=== PATIENT | female | born 1940 | race Caucasian/White ===

== ENCOUNTER → 2017-04-05 | Outpatient (CLI) | payer MEDICARE, OTHER ==
--- NOTE | 2017-04-06 19:20 | Diagnostic Imaging Report ---
Bilateral screening mammogram The current study was also evaluated with a Computer Aided Detection (CAD) system. Indication: Screening. No current complaints stated on the questionnaire. COMPARISON: 02/18/16 FINDINGS: The breasts are composed of scattered fibroglandular densities. Benign-appearing calcifications seen. Allowing for technique and positional differences, no suspicious change is seen. IMPRESSION: No significant change. ACR BI-RADS Category 2: Benign findings. Result letter will be mailed to the patient. Note: At least 10% of breast cancer is not imaged by mammography. Dictated by: Dictated on workstation # [id number]
== END ==
LOC: RAD 13:51
PROVIDERS: ATTEND Internal Medicine
DX: Z12.31 Encounter for screening mammogram for malignant neoplasm of breast (principal)
CPT/HCPCS: 77067

== ENCOUNTER → 2017-06-30 | Outpatient (CLI) | payer MEDICARE, OTHER ==
--- NOTE | 2017-06-30 11:57 | Diagnostic Imaging Report ---
Examination: DEXA scan. Indication: osteopenia Technique: Bone mineral density estimated based on dual energy radiography over the lumbar spine and femoral necks, was performed. Findings: The lumbar spine T-score is 0.9. The T score of the left femoral neck is 0.5 and on the right is 0.4. IMPRESSION: Normal bone mineral density. Dictated by: Dictated on workstation # [id number]
== END ==
LOC: RAD 10:15
PROVIDERS: ATTEND Surgery
DX: M85.812 Other specified disorders of bone density and structure, left shoulder (principal)
CPT/HCPCS: 77080

== ENCOUNTER → 2018-05-11 | Outpatient (CLI) | payer MEDICARE, OTHER ==
--- NOTE | 2018-05-11 17:43 | Diagnostic Imaging Report ---
INDICATION: Routine screening. COMPARISON: Comparison is made with prior exams from 04/05/2017 and 02/18/2016. TECHNIQUE: 2D and 3D bilateral screening mammography was performed with computer-aided detection (CAD) system. FINDINGS: Both breasts remain heterogeneously dense, limiting the sensitivity of mammography. There is an area of spiculated increased density noted in the right breast just medial to the nipple line on the CC view. This appears to be superiorly located on the MLO view. This is seen on the MLO tomographic slice 49. The density is located approximately 8.5 cm from the nipple. Left breast is unremarkable. No suspicious calcifications are seen. The axillae are unremarkable. IMPRESSION: Right breast density, upper and slightly inner aspect. Additional views including spot compression and mediolateral views are recommended for further evaluation. ACR BI-RADS Category 0: Incomplete. (Needs additional imaging evaluation). Result letter will be mailed to the patient. Note: At least 10% of breast cancer is not imaged by mammography. Dictated by: Dictated on workstation # [id number]
== END ==
LOC: RAD 13:34
PROVIDERS: ATTEND Internal Medicine
DX: Z12.31 Encounter for screening mammogram for malignant neoplasm of breast (principal)
CPT/HCPCS: 77067

== ENCOUNTER → 2018-05-18 | Outpatient (CLI) | payer MEDICARE, OTHER ==
--- NOTE | 2018-05-18 13:07 | Diagnostic Imaging Report ---
INDICATION: Right breast density. Patient presents for additional views. CORRELATION is made with recent screening study from 05/11/2018. 2D and 3D lateral right diagnostic mammography was performed including spot compression CC and MLO views as well as conventional 90 degree lateral view. Additional views show persistent spiculated density in the upper right breast at approximately 12 to 1 o'clock clock location. This is located approximately 9-10 cm from the nipple. No microcalcifications are seen. IMPRESSION: BI-RADS 0. Spiculated 1 cm density in the upper right breast at posterior depth, concerning for a small breast neoplasm. Further evaluation with ultrasound is recommended. Dictated by: Dictated on workstation # [id number]
--- NOTE | 2018-05-18 13:37 | Diagnostic Imaging Report ---
Indication: Right breast density. Correlation is made with diagnostic mammogram earlier the same day. Sonographic interrogation of the upper right breast was performed. There is a hypoechoic mass at the 1 o'clock location of the right breast 8 cm from the nipple measuring 7 mm x 5 mm x 8 mm. This does correspond in size and location to the mammographic density. Features are somewhat concerning for a small neoplasm. No shadowing is identified. No definite internal vascularity is seen. No other abnormalities are detected. Impression: BI-RADS 4 A 7 mm x 8 mm hypoechoic solid-appearing mass at the 1 o'clock location of the right breast 8 cm from the nipple. This does correspond with the mammographic density and is concerning for a small neoplasm. Tissue sampling is recommended. This would likely be amenable to ultrasound-guided core biopsy. Dictated by: Dictated on workstation # [id number]
== END ==
LOC: RAD 12:17
PROVIDERS: ATTEND Nurse Practitioner
DX: N63.12 Unspecified lump in the right breast, upper inner quadrant (principal)

== ENCOUNTER 2018-06-13 14:33 | Outpatient (CLI) | payer MEDICARE, OTHER ==
[~2018-06-13] VITALS: Ht 152.4 cm; Wt 61.2 kg
[2018-06-13 14:50] VITALS: BP 115/61
[2018-06-13] MEDS ORDERED: POTA10TA10 PO (15:51)
[2018-06-13] MEDS ORDERED: LEVO75TA6 PO (15:51)
[2018-06-13] MEDS ORDERED: MAGN250T13 PO (15:51)
[2018-06-13] MEDS ORDERED: MEDR5TAB4 PO (15:51)
[2018-06-13] MEDS ORDERED: CHOL200085 PO (15:51)
[2018-06-13] MEDS ORDERED: LISI1TAB6 PO (15:51)
[2018-06-13] MEDS ORDERED: NFBIOT1000 PO (15:51)
[2018-06-15] MEDS ORDERED: HYDR-34 PO (12:05)
== END 2018-06-13 15:10 | disposition home or self-care (01) ==
LOC: PREOP 14:33
PROVIDERS: ATTEND Surgery
DX: Z01.818 Encounter for other preprocedural examination (principal)
CPT/HCPCS: 87081

== ENCOUNTER 2018-06-15 06:39 | Day surgery (SDC) | payer MEDICARE, OTHER ==
[~2018-06-15] VITALS: Ht 152.4 cm; Wt 61.2 kg
[~2018-06-15 06:39] MED LIST: CHOL200085 PO; LEVO75TA6 PO; LISI1TAB6 PO; MAGN250T13 PO; MEDR5TAB4 PO; NFBIOT1000 PO; POTA10TA10 PO
--- OUTSIDE RECORDS SUMMARY | 2018-06-15 06:42 | XMS REPORT | Continuity of Care Document ---
Author Author [facility] Organization [facility] Address Unknown Phone Unavailable Allergies There is no data. Medications There is no data. Problems Date Dx Coded Attending Type Code Diagnosis Diagnosed By 10/27/2014 SLAVA WATSON MD Ot 599.70 HEMATURIA, UNSPECIFIED 10/27/2014 SLAVA WATSON MD Ot 788.1 DYSURIA 01/09/2015 Ot V76.12 02/18/2016 Ot V76.12 OTH SCREEN MAMMO-MALIGN NEOPLASM OF LIANET 02/18/2016 Ot 761.2 OLIGOHYDRAMNIOS AFF NB 02/18/2016 SLAVA WATSON MD Ot V76.12 OTH SCREEN MAMMO-MALIGN NEOPLASM OF LIANET 02/18/2016 FRANCY RG MD Ot 786.2 COUGH 02/18/2016 SLAVA WATSON MD Ot 599.70 HEMATURIA, UNSPECIFIED 02/18/2016 SLAVA WATSON MD Ot 788.1 DYSURIA 02/18/2016 Ot V76.12 OTH SCREEN MAMMO-MALIGN NEOPLASM OF LIANET 02/19/2016 SLAVA WATSON MD Ot Z12.31 ENCNTR SCREEN MAMMOGRAM FOR MALIGNANT NE 02/20/2016 SLAVA WATSON MD Ot Z12.31 ENCNTR SCREEN MAMMOGRAM FOR MALIGNANT NE 03/16/2016 SLAVA WATSON MD Ot Z12.31 ENCNTR SCREEN MAMMOGRAM FOR MALIGNANT NE 04/05/2017 SLAVA WATSON MD Ot Z12.31 ENCNTR SCREEN MAMMOGRAM FOR MALIGNANT NE 04/05/2017 Ot 761.2 OLIGOHYDRAMNIOS AFF NB 04/05/2017 SLAVA WATSON MD Ot V76.12 OTH SCREEN MAMMO-MALIGN NEOPLASM OF LIANET 04/05/2017 FRANCY RG MD Ot 786.2 COUGH 04/05/2017 SLAVA WATSON MD Ot 599.70 HEMATURIA, UNSPECIFIED 04/05/2017 SLAVA WATSON MD Ot 788.1 DYSURIA 04/05/2017 Ot V76.12 OTH SCREEN MAMMO-MALIGN NEOPLASM OF LIANET 04/05/2017 SLAVA WATSON MD Ot Z12.31 ENCNTR SCREEN MAMMOGRAM FOR MALIGNANT NE 04/05/2017 SLAVA WATSON MD Ot Z12.31 ENCNTR SCREEN MAMMOGRAM FOR MALIGNANT NE 04/05/2017 SLAVA WATSON MD Ot Z12.31 ENCNTR SCREEN MAMMOGRAM FOR MALIGNANT NE 04/11/2017 SLAVA WATSON MD Ot Z12.31 ENCNTR SCREEN MAMMOGRAM FOR MALIGNANT NE 04/28/2017 SLAVA WATSON MD Ot Z12.31 ENCNTR SCREEN MAMMOGRAM FOR MALIGNANT NE 06/21/2017 ARCENIO ELIAS, FRANCY Ot M85.80 OTH DISRD OF BONE DENSITY AND STRUCTURE, 06/23/2017 FRANCY RG MD Ot M85.80 OTH DISRD OF BONE DENSITY AND STRUCTURE, 06/23/2017 FRANCY RG MD Ot M85.812 OTH DISRD OF BONE DENSITY AND STRUCTURE, 06/23/2017 Ot 761.2 OLIGOHYDRAMNIOS AFF NB 06/23/2017 SLAVA WATSON MD Ot V76.12 OTH SCREEN MAMMO-MALIGN NEOPLASM OF LIANET 06/23/2017 TOBIN RG MDKI Ot 786.2 COUGH 06/23/2017 SLAVA WATSON MD Ot 599.70 HEMATURIA, UNSPECIFIED 06/23/2017 SLAVA WATSON MD Ot 788.1 DYSURIA 06/23/2017 Ot V76.12 OTH SCREEN MAMMO-MALIGN NEOPLASM OF LIANET 06/23/2017 SLAVA WATSON MD Ot Z12.31 ENCNTR SCREEN MAMMOGRAM FOR MALIGNANT NE 06/23/2017 SLAVA WATSON MD Ot Z12.31 ENCNTR SCREEN MAMMOGRAM FOR MALIGNANT NE 06/23/2017 FRANCY RG MD Ot M85.812 OTH DISRD OF BONE DENSITY AND STRUCTURE, 06/29/2017 Ot 761.2 OLIGOHYDRAMNIOS AFF NB 06/29/2017 SLAVA WATSON MD Ot V76.12 OTH SCREEN MAMMO-MALIGN NEOPLASM OF LIANET 06/29/2017 FRANCY RG MD Ot 786.2 COUGH 06/29/2017 SLAVA WATSON MD Ot 599.70 HEMATURIA, UNSPECIFIED 06/29/2017 SLAVA WATSON MD Ot 788.1 DYSURIA 06/29/2017 Ot V76.12 OTH SCREEN MAMMO-MALIGN NEOPLASM OF LIANET 06/29/2017 SLAVA WATSON MD Ot Z12.31 ENCNTR SCREEN MAMMOGRAM FOR MALIGNANT NE 06/29/2017 SLAVA WATSON MD Ot Z12.31 ENCNTR SCREEN MAMMOGRAM FOR MALIGNANT NE 06/29/2017 FRANCY RG MD, Ot M85.812 OTH DISRD OF BONE DENSITY AND STRUCTURE, 06/29/2017 FRANCY RG MD, Ot M85.812 OTH DISRD OF BONE DENSITY AND STRUCTURE, 07/21/2017 FRANCY RG MD, Ot M85.812 OTH DISRD OF BONE DENSITY AND STRUCTURE, Procedures There is no data. Results There is no data. Encounters ACCT No. Visit Date/Time Discharge Status Pt. Type Provider Facility Loc./Unit Complaint [id number] 04/17/2018 14:43:00 04/17/2018 23:59:59 CLS Preadmit SLAVA WATSON MD [facility] RAD SCREENING [id number] 04/05/2018 08:16:00 04/05/2018 23:59:59 CLS Preadmit FRANCY RG MD [facility] RAD RUQ PAIN [id number] 06/30/2017 10:15:00 06/30/2017 23:59:59 CLS Outpatient FRANCY RG MD [facility] RAD OSTEOPENIA [id number] 04/05/2017 13:51:00 04/05/2017 23:59:59 CLS Outpatient SLAVA WATSON MD [facility] RAD SCREENING [id number] 02/18/2016 14:34:00 02/18/2016 23:59:59 CLS Outpatient SLAVA WATSON MD [facility] RAD SCREENING [id number] 10/28/2014 00:34:00 10/28/2014 23:59:59 CLS Preadmit SLAVA WATSON MD [facility] LAB BURNING IN URINATION , HEMATURIA [id number] 07/29/2014 09:57:00 10/27/2014 00:01:00 DIS Outpatient SLAVA WATSON MD [facility] LAB BURNING IN URINATION , HEMATURIA [id number] 04/16/2014 10:21:00 04/16/2014 23:59:59 CLS Outpatient FRANCY RG MD [facility] RAD PERSISTANT COUGH [id number] 12/21/2013 10:48:00 12/21/2013 23:59:59 CLS Outpatient SLAVA WATSON MD [facility] RAD SCREENING [id number] 12/17/2014 10:03:00 Document Registration [id number] 11/17/2012 13:06:00 Document Registration [id number] 08/20/2011 09:39:00 Document Registration
[2018-06-15 06:55] VITALS: BP 130/58
[2018-06-15] MEDS ORDERED: ceFAZolin INJECTION 1,000 MG in NS (IVPB) 50 ML IV ONE (07:00)
[2018-06-15] MEDS ORDERED: CATHETER FLUSH 10 ML SYR IV PRN (07:15)
[2018-06-15] MEDS ORDERED: LIDOCAINE 1% INJ 20 ML 20 ML VIAL ONE (07:26)
[2018-06-15] MEDS ORDERED: LIDOCAINE 1% INJ 20 ML 20 ML VIAL INJ ONE (07:45)
[2018-06-15] MEDS: LACTATED RINGERS 1,000 ML IV PRN ×2 (08:15→11:01)
[2018-06-15] MEDS ORDERED: BUP/EPI 0.5% 1:200,000 (SENSORCAINE) 30 ML VIAL ONE (08:20)
--- NOTE | 2018-06-15 08:57 | Progress Note-Pre Operative ---
Pre-Operative Progress Note H&P Reviewed The H&P was reviewed, patient examined and no changes noted. Date Seen by Provider: Jun 15, 2018 Time Seen by Provider: 08:30 Date H&P Reviewed: Jun 15, 2018 Time H&P Reviewed: 08:30 Pre-Operative Diagnosis: right breast cancer FRANCY RG MD Jun 15, 2018 8:57 am
[2018-06-15] MEDS ORDERED: ONDANSETRON 4 MG/2 ML (SDV) Z0FRAN IVP PRN ×2 (09:00→13:00)
[2018-06-15] MEDS ORDERED: HYDROcodone/APAP 7.5 MG/325 MG (LORTAB, LORCET PLUS) TABLET PO PRN (09:00)
[2018-06-15] MEDS ORDERED: ACETAMINOPHEN 325 MG TABLET PO PRN (09:00)
[2018-06-15] MEDS ORDERED: morphine INJ 10 MG/ML 1ML (SYR OR VIAL) IVP PRN (09:00)
[2018-06-15] MEDS ORDERED: LIDOCAINE PF 2% 5 ML (XYLOCAINE) VIAL ONE (09:44)
[2018-06-15] MEDS ORDERED: ONDANSETRON 4 MG/2 ML (SDV) Z0FRAN ONE (09:44)
[2018-06-15] MEDS ORDERED: fentaNYL INJECTION 100 MCG/2 ML AMP ONE (09:44)
[2018-06-15] MEDS ORDERED: MIDAZOLAM 2 MG/2 ML (VERSED) VIAL ONE (09:44)
[2018-06-15] MEDS ORDERED: DEXAMETHASONE 10 MG/ML (DECADRON) 1 ML VIAL ONE (09:44)
[2018-06-15] MEDS ORDERED: SEVOFLURANE (ULTANE) 15 ML INHAL SOLN ONE ×8 (09:44→12:41)
[2018-06-15] MEDS ORDERED: proPOfol 200 MG/20 ML (DIPRIVAN) VIAL IV ONE (09:44)
[2018-06-15] MEDS ORDERED: NS (IVPB) 50 ML ONE (09:46)
[2018-06-15] MEDS ORDERED: ceFAZolin 1,000 MG/10 ML (ANCEF) VIAL ONE (09:46)
--- NOTE | 2018-06-15 11:38 | Diagnostic Imaging Report ---
INDICATION: Right breast carcinoma. Patient presents for a ultrasound guided needle localization and hook wire placement. Patient was brought to the procedure room and placed on the table in the supine position. Ultrasound imaging over the right breast was performed to evaluate appropriate entry site. The right breast was then prepped and draped in usual sterile fashion. Small amount of 1% lidocaine was utilized for local anesthesia. A localizing needle was advanced and placed through the hypoechoic lesion at the 1 o'clock location of the right breast, 8 cm from the nipple. The hookwire was deployed and needle was removed. Wire was fixed to the patient's skin. Patient tolerated he procedure well. IMPRESSION: Successful ultrasound-guided needle localization with hookwire placement of the hypoechoic lesion at the 1 o'clock location of the right breast. Dictated by: Dictated on workstation # [id number]
--- NOTE | 2018-06-15 11:40 | Diagnostic Imaging Report ---
INDICATION: Right breast carcinoma. A total of 1.0 mCi technetium 99m sulfur colloid was injected in 4 separate aliquots in a right periareolar distribution. Imaging over the right breast was performed in an attempt to identify the sentinel node or nodes. Imaging was carried out however activity remains in a periareolar location. No significant isotope migration is seen to the right axilla. IMPRESSION: Injection of isotope in a right periareolar location, as described. No significant isotope migration is seen for identification of a sentinel node. Dictated by: Dictated on workstation # [id number]
[2018-06-15] MEDS ORDERED: PHENYLEPHRINE 100 MCG/ML 10 ML (ANESTHESIA) SYR ONE (11:44)
[2018-06-15] MEDS ORDERED: HYDR-34 PO (12:05)
--- NOTE | 2018-06-15 12:07 | Discharge Inst-Surgical ---
D/C Lap Instructions-ARCENIO New, Converted, or Re-Newed RX: RX on Chart Follow Up Appt in 2 weeks Activity as tolerated No driving for 24 hours No driving while on pain medications Regular Diet Symptoms to Report: Fever over 101 degree F, Nausea/Vomiting Infection Signs and Symptoms to report: Increased redness, Foul odor of wound, Increased drainage Bathing instructions: May shower Operative Area Clean/Dry; Keep incision clean/dry If any problems/questions: Contact your physician or go to Emergency Room FRANCY RG MD Jun 15, 2018 12:07 pm
--- NOTE | 2018-06-15 12:50 | Progress Note-Post Operative ---
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 colonoscopy. Anesthesia Type general LMA Estimated Blood Loss Estimated blood loss (mL): minimal Specimens/Packing Specimens Removed right breast lumpectomy, anterior margin, sentinel node FRANCY RG MD Jun 15, 2018 12:50 pm
[2018-06-15] MEDS ORDERED: morphine INJ 10 MG/ML 1ML (SYR OR VIAL) IVP ONE (13:00)
--- NOTE | 2018-06-15 13:49 | Diagnostic Imaging Report ---
INDICATION: Right breast lumpectomy for right breast carcinoma. Specimen radiograph of the right breast demonstrates the hookwire as well as the marker clip located within the specimen. There are some areas of nodularity adjacent to the hookwire which may represent the localized nodule. IMPRESSION: Specimen radiograph, as described. Dictated by: Dictated on workstation # [id number]
[2018-06-15 14:00] VITALS: BP 145/79
[2018-06-15 14:01] VITALS: BP 145/79
--- NOTE | 2018-06-15 14:25 | Anesthesia-General Post-Op ---
General Patient Condition Mental Status/LOC: Same as Preop Cardiovascular: Satisfactory Nausea/Vomiting: Absent Respiratory: Satisfactory Pain: Controlled Complications: Absent Post Op Complications Complications None Follow Up Care/Instructions Patient Instructions None needed. Anesthesia/Patient Condition Patient Condition Patient is doing well, no complaints, stable vital signs, no apparent adverse anesthesia problems. No complications reported per nursing. [place] [facility] [place] Yes LELO CALLOWAY CRNA Jun 15, 2018 14:25
[2018-06-15 14:30] VITALS: BP 146/51
--- NOTE | 2018-06-15 14:31 | OPERATIVE REPORT ---
DATE OF SERVICE: 06/15/2018 ATTENDING PRIMARY CARE PHYSICIAN: Abiodun Jensen MD. PREOPERATIVE DIAGNOSES: 1. Right infiltrating ductal breast cancer. 2. Screening colonoscopy. POSTOPERATIVE DIAGNOSES: Right breast infiltrating ductal cancer, preliminarily negative sentinel node. Moderate sigmoid diverticulosis. SURGEON: Francy Centeno MD. CORRUGATOR SUPERVISOR: Ricardo Boone APRN. ANESTHESIA: General laryngeal mask airway. ESTIMATED BLOOD LOSS: Minimal. FINDINGS: Right breast infiltrating ductal cancer, preliminarily negative sentinel node. Moderate sigmoid diverticulosis. DISPOSITION: The patient tolerated the procedure well. INDICATIONS: The patient is a 77-year-old female known to us. She has undergone a screening mammography in 04/2018 and found to have a lesion of the right breast which was new and appeared spiculated with BI-RADS category 4. She was then scheduled for stereotactic core needle biopsy and came back as grade II invasive ductal carcinoma with estrogen receptor status pending. Upon examination, she had no palpable breast lesions. No asymmetries or skin dimpling. She does not report any abnormal discharge. She has had two pregnancies as well as two live childbirths in the past. She does not know any family history of breast cancer. On examination, there were no palpable masses as well as no lymphadenopathy. The patient also needs a screening colonoscopy. Her last colonoscopy was 12 years ago. DESCRIPTION OF PROCEDURE: The patient was brought to the operating room, laid supine on the table. After adequate IV pain and sedative medications and general laryngeal mask airway intubation, the patient's arm was placed in extended and the arm, axilla, breast and neck were prepped and draped in standard surgical fashion. We first proceeded with an excision of the sentinel node. Using the counter, the sentinel node was identified. This was in the anterior axilla. The skin was then anesthetized using 0.5% Marcaine with epinephrine and a crescent shaped skin incision made using a 15 blade. The subcutaneous tissue was then dissected down to the clavipectoral fascia, which was then opened along the same direction using electrocautery. We then proceeded with blunt dissection identifying the sentinel node. The sentinel node was also stained blue. Before the procedure, subdermal nipple areolar isosulfan blue injections were made. Again, sentinel lymph node was identified by the blue coloration as well as the [place] counter. The lymph node was then excised using blunt dissection as well as electrocautery with visualization of good hemostasis. The sentinel node count was 610 with the ex-vivo bed at 51, which was less than 10% and consistent with a sentinel node. This was sent to pathology and preliminarily negative for malignancy. We then proceeded with excision of our sentinel node. Before the procedure, the patient underwent placement of a hook wire under mammographic guidance. A crescent-shaped skin incision just superior to the needle was made along the glabellar lines. The subcutaneous tissue was then opened using electrocautery. We then proceeded with a wide rim of normal appearing skin around the entire hook wire using Sasha clamps to retract the breast tissue around the wire. The dissection was done using electrocautery with visualization of good hemostasis. This was sent to pathology with a potential questionable anterior margin which was then excised using electrocautery and sent to pathology as well. Both wounds were then copiously irrigated. The subcutaneous tissue was then reapproximated using 3-0 Vicryl interrupted sutures. Skin incisions were then closed using 4-0 Monocryl running subcuticular sutures. Wounds were then cleaned and covered with Dermabond. We then proceeded with the colonoscopy portion of procedure. Under the same anesthesia, the patient was then placed in a frog leg position. A digital rectal examination was performed, which did not reveal any significant hemorrhoids. Normal sphincter tone was felt and there were no palpable masses. Endoscope was then intubated into the anus and the rectum gently insufflated. The endoscope was then advanced through the valves of [place] of the rectum with no polyps or any neoplasms identified. We then proceeded to the sigmoid colon where moderate sigmoid diverticulosis identified. There were no mucosal inflammatory changes to indicate any active diverticulitis. The endoscope was then advanced through the remainder of the descending, transverse and ascending colon to the cecum. These segments were normal. There were no polyps or any neoplasms identified throughout the colon or rectum. The endoscope was then slowly withdrawn while taking a second look and suctioning of residual air with no additional findings. The patient tolerated the procedure well. We will recommend the necessary diet modification including a high fiber diet with at least 25 grams of fiber per day as well as at least 64 fluid ounces of water daily to promote soft stools on a daily basis. She does not need another colonoscopy for another 10 years. Job ID: [id number] DocumentID: [id number] Dictated Date: 06/15/2018 13:00:50 Child Protective Investigator Date: 06/15/2018 14:30:14 Dictated By: FRANCY CENTENO MD
[2018-06-15 15:00] VITALS: BP 133/73
[2018-06-15 15:30] VITALS: BP 133/73
== END 2018-06-15 15:35 | disposition home or self-care (01) ==
LOC: RAD 06:39
PROVIDERS: ATTEND Surgery
DX: C50.911 Malignant neoplasm of unspecified site of right female breast (principal)
CPT/HCPCS: 19285; 76098; 78195

== ENCOUNTER 2018-07-03 13:43 | Outpatient (RCR) | payer MEDICARE, OTHER ==
[~2018-07-03 13:43] MED LIST changes: +HYDR-34 PO
[2018-07-03 13:54] LABS: BASOPHILS % (AUTO) 0 % (0-10); EOSINOPHILS # (AUTO) 0.1 10^3/uL (0.0-0.3); EOSINOPHILS % (AUTO) 1 % (0-10); HEMATOCRIT 40 % (35-52); HEMOGLOBIN 13.9 G/DL (11.5-16.0); LYMPHOCYTES # (AUTO) 1.7 X 10^3 (1.0-4.0); LYMPHOCYTES % (AUTO) 24 % (12-44); MEAN CORPUSCULAR HEMOGLOBIN 31 PG (25-34); MEAN CORPUSCULAR HGB CONC 35 G/DL (32-36); MEAN CORPUSCULAR VOLUME 90 FL (80-99); MEAN PLATELET VOLUME 10.4 FL (7.4-10.4); MONOCYTES # (AUTO) 0.5 X 10^3 (0.0-1.0); MONOCYTES % (AUTO) 7 % (0-12); NEUTROPHILS # (AUTO) 4.9 X 10^3 (1.8-7.8); NEUTROPHILS % (AUTO) 67 % (42-75); PLATELET COUNT 219 10^3/uL (130-400); RED BLOOD COUNT 4.46 10^6/uL (4.35-5.85); WHITE BLOOD COUNT 7.2 10^3/uL (4.3-11.0)
[2018-07-03 14:13] LABS: ALBUMIN 4.2 GM/DL (3.2-4.5); BILIRUBIN,TOTAL 0.7 MG/DL (0.1-1.0); CALCIUM 9.7 MG/DL (8.5-10.1); CREATININE SERUM 1.05 MG/DL (0.60-1.30); POTASSIUM 3.5 MMOL/L (3.6-5.0); TOTAL PROTEIN 7.2 GM/DL (6.4-8.2)
== END 2018-07-09 | disposition home or self-care (01) ==
LOC: ONC 13:43
PROVIDERS: ATTEND Internal Medicine Hematology & Oncology
DX: C50.211 Malignant neoplasm of upper-inner quadrant of right female breast (principal); Z17.0 Estrogen receptor positive status [ER+]
CPT/HCPCS: 36415; 80053; 83735; 85025; 99213; 99214

== ENCOUNTER 2018-08-14 13:11 | Outpatient (RCR) | payer MEDICARE, OTHER ==
[~2018-08-14 13:11] MED LIST changes: +CHOL200014 PO; -CHOL200085 PO
[2018-08-14 13:23] LABS: BASOPHILS % (AUTO) 0 % (0-10); EOSINOPHILS # (AUTO) 0.1 10^3/uL (0.0-0.3); EOSINOPHILS % (AUTO) 2 % (0-10); HEMATOCRIT 41 % (35-52); HEMOGLOBIN 13.7 G/DL (11.5-16.0); LYMPHOCYTES # (AUTO) 1.6 X 10^3 (1.0-4.0); LYMPHOCYTES % (AUTO) 23 % (12-44); MEAN CORPUSCULAR HEMOGLOBIN 30 PG (25-34); MEAN CORPUSCULAR HGB CONC 34 G/DL (32-36); MEAN CORPUSCULAR VOLUME 90 FL (80-99); MONOCYTES # (AUTO) 0.7 X 10^3 (0.0-1.0); MONOCYTES % (AUTO) 10 % (0-12); NEUTROPHILS # (AUTO) 4.6 X 10^3 (1.8-7.8); NEUTROPHILS % (AUTO) 65 % (42-75); PLATELET COUNT 232 10^3/uL (130-400); WHITE BLOOD COUNT 7.1 10^3/uL (4.3-11.0)
[2018-08-14 13:40] LABS: ALBUMIN 4.3 GM/DL (3.2-4.5); BILIRUBIN,TOTAL 0.7 MG/DL (0.1-1.0); CALCIUM 9.8 MG/DL (8.5-10.1); CREATININE SERUM 0.93 MG/DL (0.60-1.30); POTASSIUM 3.8 MMOL/L (3.6-5.0); TOTAL PROTEIN 7.3 GM/DL (6.4-8.2)
== END 2018-11-12 | disposition home or self-care (01) ==
LOC: ONC 13:11
PROVIDERS: ATTEND Internal Medicine Hematology & Oncology
DX: C50.211 Malignant neoplasm of upper-inner quadrant of right female breast (principal); Z17.0 Estrogen receptor positive status [ER+]
CPT/HCPCS: 36415; 80053; 85025; 99213

== ENCOUNTER 2018-11-14 12:50 | Outpatient (RCR) | payer MEDICARE, OTHER ==
[2018-11-14 13:05] LABS: BASOPHILS % (AUTO) 1 % (0-10); EOSINOPHILS # (AUTO) 0.2 10^3/uL (0.0-0.3); EOSINOPHILS % (AUTO) 2 % (0-10); HEMATOCRIT 39 % (35-52); LYMPHOCYTES # (AUTO) 1.8 X 10^3 (1.0-4.0); LYMPHOCYTES % (AUTO) 23 % (12-44); MEAN CORPUSCULAR HEMOGLOBIN 30 PG (25-34); MEAN CORPUSCULAR HGB CONC 33 G/DL (32-36); MEAN CORPUSCULAR VOLUME 89 FL (80-99); MEAN PLATELET VOLUME 9.7 FL (7.4-10.4); MONOCYTES # (AUTO) 0.6 X 10^3 (0.0-1.0); MONOCYTES % (AUTO) 7 % (0-12); NEUTROPHILS # (AUTO) 5.2 X 10^3 (1.8-7.8); NEUTROPHILS % (AUTO) 67 % (42-75); PLATELET COUNT 263 10^3/uL (130-400); RED CELL DISTRIBUTION WIDTH 12.7 % (10.0-14.5); WHITE BLOOD COUNT 7.8 10^3/uL (4.3-11.0)
[2018-11-14 13:21] LABS: ALANINE AMINOTRANSFERASE 12 U/L (0-55); ALBUMIN 3.9 GM/DL (3.2-4.5); ALKALINE PHOSPHATASE 85 U/L (40-136); BILIRUBIN,TOTAL 0.5 MG/DL (0.1-1.0); BUN/CREATININE RATIO 15; CALCIUM 9.6 MG/DL (8.5-10.1); CARBON DIOXIDE 25 MMOL/L (21-32); CHLORIDE 104 MMOL/L (98-107); CREATININE SERUM 0.89 MG/DL (0.60-1.30); GFR ESTIMATED > 60; GLUCOSE 105 MG/DL (70-105); POTASSIUM 3.8 MMOL/L (3.6-5.0); SODIUM 141 MMOL/L (135-145); TOTAL PROTEIN 7.1 GM/DL (6.4-8.2)
== END 2019-02-12 | disposition home or self-care (01) ==
LOC: ONC 12:50
PROVIDERS: ATTEND Internal Medicine Hematology & Oncology
DX: C50.211 Malignant neoplasm of upper-inner quadrant of right female breast (principal); Z17.0 Estrogen receptor positive status [ER+]
CPT/HCPCS: 36415; 80053; 85025; 99213

== ENCOUNTER 2019-02-13 13:20 | Outpatient (RCR) | payer MEDICARE, OTHER ==
[2019-02-13 13:34] LABS: BASOPHILS % (AUTO) 0 % (0-10); EOSINOPHILS # (AUTO) 0.1 10^3/uL (0.0-0.3); EOSINOPHILS % (AUTO) 1 % (0-10); HEMATOCRIT 41 % (35-52); HEMOGLOBIN 13.6 G/DL (11.5-16.0); LYMPHOCYTES # (AUTO) 1.8 X 10^3 (1.0-4.0); LYMPHOCYTES % (AUTO) 22 % (12-44); MEAN CORPUSCULAR HEMOGLOBIN 29 PG (25-34); MEAN CORPUSCULAR HGB CONC 33 G/DL (32-36); MEAN CORPUSCULAR VOLUME 87 FL (80-99); MEAN PLATELET VOLUME 10.2 FL (7.4-10.4); MONOCYTES # (AUTO) 0.6 X 10^3 (0.0-1.0); MONOCYTES % (AUTO) 7 % (0-12); NEUTROPHILS # (AUTO) 5.9 X 10^3 (1.8-7.8); NEUTROPHILS % (AUTO) 70 % (42-75); PLATELET COUNT 228 10^3/uL (130-400); RED CELL DISTRIBUTION WIDTH 13.5 % (10.0-14.5); WHITE BLOOD COUNT 8.4 10^3/uL (4.3-11.0)
[2019-02-13 13:51] LABS: ALBUMIN 4.1 GM/DL (3.2-4.5); BILIRUBIN,TOTAL 0.7 MG/DL (0.1-1.0); CALCIUM 9.8 MG/DL (8.5-10.1); CREATININE SERUM 0.99 MG/DL (0.60-1.30); TOTAL PROTEIN 7.2 GM/DL (6.4-8.2)
[2019-02-19] MEDS ORDERED: fentaNYL INJECTION 100 MCG/2 ML AMP ONE (15:58)
== END 2019-05-14 | disposition home or self-care (01) ==
LOC: ONC 13:20
PROVIDERS: ATTEND Internal Medicine Hematology & Oncology
DX: C50.211 Malignant neoplasm of upper-inner quadrant of right female breast (principal); M25.50 Pain in unspecified joint; Z17.0 Estrogen receptor positive status [ER+]; Z79.811 Long term (current) use of aromatase inhibitors
CPT/HCPCS: 36415; 80053; 85025; 99213

== ENCOUNTER → 2019-03-01 | Outpatient (CLI) | payer MEDICARE, OTHER ==
--- NOTE | 2019-03-01 16:04 | Diagnostic Imaging Report ---
INDICATION: Bilateral hand pain. COMPARISON: None available. TECHNIQUE: Six radiographs of the bilateral hands dated March 01, 2019. FINDINGS: Left: No acute fracture or dislocation. No destructive osseous process. Carpal alignment is well maintained. Minimal scattered degenerative changes, greatest involving the first CMC joint. No suspicious radiopaque foreign body. Right: No acute fracture or dislocation. No destructive osseous process. Carpal alignment is well maintained. Mild scattered degenerative changes, greatest involving the first CMC joint. No suspicious radiopaque foreign body. IMPRESSION: No acute osseous abnormality with mild scattered degenerative changes, greatest involving the first CMC joints. Dictated by: Dictated on workstation # [id number]
== END ==
LOC: RAD 08:50
PROVIDERS: ATTEND Internal Medicine
DX: M19.041 Primary osteoarthritis, right hand (principal)

== ENCOUNTER 2019-05-23 13:05 | Outpatient (RCR) | payer MEDICARE, OTHER ==
[2019-05-23 13:10] LABS: BASOPHILS % (AUTO) 1 % (0-10); EOSINOPHILS # (AUTO) 0.1 10^3/uL (0.0-0.3); EOSINOPHILS % (AUTO) 1 % (0-10); HEMATOCRIT 40 % (35-52); HEMOGLOBIN 13.6 G/DL (11.5-16.0); LYMPHOCYTES # (AUTO) 1.7 X 10^3 (1.0-4.0); LYMPHOCYTES % (AUTO) 22 % (12-44); MEAN CORPUSCULAR HEMOGLOBIN 30 PG (25-34); MEAN CORPUSCULAR HGB CONC 34 G/DL (32-36); MEAN CORPUSCULAR VOLUME 88 FL (80-99); MEAN PLATELET VOLUME 10.6 FL (7.4-10.4); MONOCYTES # (AUTO) 0.5 X 10^3 (0.0-1.0); MONOCYTES % (AUTO) 7 % (0-12); NEUTROPHILS # (AUTO) 5.2 X 10^3 (1.8-7.8); NEUTROPHILS % (AUTO) 69 % (42-75); PLATELET COUNT 204 10^3/uL (130-400); RED CELL DISTRIBUTION WIDTH 13.1 % (10.0-14.5); WHITE BLOOD COUNT 7.5 10^3/uL (4.3-11.0)
[2019-05-23 13:28] LABS: BILIRUBIN,TOTAL 0.5 MG/DL (0.1-1.0); CALCIUM 9.7 MG/DL (8.5-10.1); CREATININE SERUM 0.97 MG/DL (0.60-1.30); POTASSIUM 3.7 MMOL/L (3.6-5.0)
== END 2019-08-21 | disposition home or self-care (01) ==
LOC: ONC 13:05
PROVIDERS: ATTEND Internal Medicine Hematology & Oncology
DX: C50.211 Malignant neoplasm of upper-inner quadrant of right female breast (principal); M25.50 Pain in unspecified joint; Z17.0 Estrogen receptor positive status [ER+]; Z79.811 Long term (current) use of aromatase inhibitors
CPT/HCPCS: 36415; 80053; 84443; 85025

== ENCOUNTER → 2019-05-23 | Outpatient (CLI) | payer MEDICARE, OTHER ==
--- NOTE | 2019-05-23 10:48 | Diagnostic Imaging Report ---
INDICATION: Right breast carcinoma, status post lumpectomy. COMPARISON: 05/11/2018 and 04/05/2017. TECHNIQUE: 2D and 3D bilateral diagnostic mammography was performed with CAD. FINDINGS: Scattered fibroglandular densities are identified bilaterally. Post lumpectomy changes in the upper inner aspect of the right breast are noted. No new mass or malignant appearing microcalcifications are seen. The axillae are unremarkable. IMPRESSION: No mammographic features suspicious for malignancy are identified. ACR BI-RADS Category 2: Benign findings. Result letter will be mailed to the patient. Note: At least 10% of breast cancer is not imaged by mammography. Dictated by: Dictated on workstation # [id number]
== END ==
LOC: RAD 09:06
PROVIDERS: ATTEND Internal Medicine Hematology & Oncology
DX: C50.211 Malignant neoplasm of upper-inner quadrant of right female breast (principal); Z90.11 Acquired absence of right breast and nipple; Z79.811 Long term (current) use of aromatase inhibitors
CPT/HCPCS: 77066

== ENCOUNTER → 2019-08-21 | Outpatient (CLI) | payer MEDICARE, OTHER ==
--- NOTE | 2019-08-21 16:35 | Diagnostic Imaging Report ---
INDICATION: Postmenopausal state, drug therapy. COMPARISON: June 30, 2017. FINDINGS: AP Spine L1-L4: [BMD (g/cm2): 1.108] [T-Score: -0.8] [Z-Score: 1.2] [BMD Previous: 1.302] [BMD % Change: -14.9] LT Hip Neck: [BMD (g/cm2): 0.908] [T-Score: -0.9] [Z-Score: 1.3] LT Hip Total: [BMD (g/cm2):1.003] [T-Score:0.0] [Z-Score: 2.0] [BMD Previous: 1.068] [BMD % Change: -6.1] RT Hip Neck: [BMD (g/cm2):0.880] [T-Score:-1.1] [Z-Score:1.1] RT Hip Total: [BMD (g/cm2):0.975] [T-score:-0.3] [Z-Score:1.8] [BMD Previous:1.054] [BMD % Change:-7.5] *Indicates significant change from prior examination based on 95% confidence level. World Health Organization criteria for BMD interpretation classify patients as Normal (T-score at or above -1.0), Osteopenic (T-score between -1.0 and -2.5) or Osteoporotic (T-score at or below -2.5). LIMITATIONS AND MODIFICATION: None. FRACTURE RISK (FRAX SCORE): The ten year probability of (%): Major Osteoporotic Fracture: [12.1] Hip Fracture: [2.4] IMPRESSION: 1. Osteopenia (Low bone mass). 2. No significant change in bone mineral density since prior examination. 3. See below National Osteoporosis Foundation guidelines on when to potentially initiate pharmacologic therapy. Based on the National Osteoporosis Foundation Guidelines, pharmacologic treatment should be initiated in any of the following, unless clinical conditions suggest otherwise: * Any patient with prior fragility fracture of the hip or vertebrae. A spine fracture indicates 5X risk for subsequent spine fracture and 2X risk for subsequent hip fracture. * Osteoporosis (T-score <-2.5). * Postmenopausal women and men age 50 and older with low bone mass/osteopenia (T-score between -1.0 and -2.5) by DXA and 10-year major osteoporotic fracture greater than 20% or a 10-year probability of hip fracture greater than 3%. These fracture risks are supplied above in the FRAX score, if applicable. * Clinician judgement and/or patient preferences may indicate treatment for people with 10-year fracture probabilities above or below these levels. Dictated by: Dictated on workstation # [id number]
== END ==
LOC: RAD 13:58
PROVIDERS: ATTEND Nurse Practitioner Adult Health
DX: C50.211 Malignant neoplasm of upper-inner quadrant of right female breast (principal); M85.88 Other specified disorders of bone density and structure, other site; Z79.899 Other long term (current) drug therapy; Z78.0 Asymptomatic menopausal state
CPT/HCPCS: 77080

== ENCOUNTER 2019-08-23 12:50 | Outpatient (RCR) | payer MEDICARE, OTHER ==
[~2019-08-23 12:50] MED LIST changes: +LISI1TAB29 PO; -LISI1TAB6 PO
[2019-08-23 13:00] LABS: BASOPHILS # (AUTO) 0.1 10^3/uL (0.0-0.1); BASOPHILS % (AUTO) 1 % (0-10); EOSINOPHILS # (AUTO) 0.1 10^3/uL (0.0-0.3); EOSINOPHILS % (AUTO) 1 % (0-10); HEMATOCRIT 40 % (35-52); HEMOGLOBIN 13.3 G/DL (11.5-16.0); LYMPHOCYTES # (AUTO) 1.8 X 10^3 (1.0-4.0); LYMPHOCYTES % (AUTO) 25 % (12-44); MEAN CORPUSCULAR HEMOGLOBIN 29 PG (25-34); MEAN CORPUSCULAR HGB CONC 33 G/DL (32-36); MEAN CORPUSCULAR VOLUME 89 FL (80-99); MEAN PLATELET VOLUME 10.4 FL (7.4-10.4); MONOCYTES # (AUTO) 0.5 X 10^3 (0.0-1.0); MONOCYTES % (AUTO) 7 % (0-12); NEUTROPHILS # (AUTO) 4.7 X 10^3 (1.8-7.8); NEUTROPHILS % (AUTO) 66 % (42-75); PLATELET COUNT 211 10^3/uL (130-400); RED CELL DISTRIBUTION WIDTH 13.6 % (10.0-14.5); WHITE BLOOD COUNT 7.1 10^3/uL (4.3-11.0)
[2019-08-23 13:19] LABS: ALBUMIN 4.2 GM/DL (3.2-4.5); BILIRUBIN,TOTAL 0.5 MG/DL (0.1-1.0); CALCIUM 9.3 MG/DL (8.5-10.1); CREATININE SERUM 0.94 MG/DL (0.60-1.30); POTASSIUM 3.7 MMOL/L (3.6-5.0); TOTAL PROTEIN 7.1 GM/DL (6.4-8.2)
== END 2019-11-21 | disposition home or self-care (01) ==
LOC: ONC 12:50
PROVIDERS: ATTEND Internal Medicine Hematology & Oncology
DX: C50.211 Malignant neoplasm of upper-inner quadrant of right female breast (principal); N18.3 Chronic kidney disease, stage 3 (moderate); M85.88 Other specified disorders of bone density and structure, other site; Z17.0 Estrogen receptor positive status [ER+]; Z98.890 Other specified postprocedural states; Z79.811 Long term (current) use of aromatase inhibitors
CPT/HCPCS: 36415; 80053; 85025; 99213

== ENCOUNTER → 2019-10-24 | Outpatient (CLI) | payer MEDICARE, OTHER | LOC: LAB 10:20 | PROVIDERS: ATTEND Internal Medicine | DX: E03.9 Hypothyroidism, unspecified (principal) | CPT/HCPCS: 36415; 84443 ==

== ENCOUNTER 2019-11-27 13:06 | Outpatient (RCR) | payer MEDICARE, OTHER ==
[2019-11-27 13:20] LABS: BASOPHILS % (AUTO) 0 % (0-10); EOSINOPHILS # (AUTO) 0.1 10^3/uL (0.0-0.3); EOSINOPHILS % (AUTO) 1 % (0-10); HEMATOCRIT 41 % (35-52); HEMOGLOBIN 13.8 G/DL (11.5-16.0); LYMPHOCYTES # (AUTO) 1.7 X 10^3 (1.0-4.0); LYMPHOCYTES % (AUTO) 23 % (12-44); MEAN CORPUSCULAR HEMOGLOBIN 30 PG (25-34); MEAN CORPUSCULAR HGB CONC 33 G/DL (32-36); MEAN CORPUSCULAR VOLUME 89 FL (80-99); MEAN PLATELET VOLUME 10.2 FL (7.4-10.4); MONOCYTES # (AUTO) 0.7 X 10^3 (0.0-1.0); MONOCYTES % (AUTO) 9 % (0-12); NEUTROPHILS # (AUTO) 4.7 X 10^3 (1.8-7.8); NEUTROPHILS % (AUTO) 66 % (42-75); PLATELET COUNT 223 10^3/uL (130-400); RED CELL DISTRIBUTION WIDTH 13.2 % (10.0-14.5); WHITE BLOOD COUNT 7.2 10^3/uL (4.3-11.0)
[2019-11-27 13:40] LABS: ALBUMIN 4.2 GM/DL (3.2-4.5); BILIRUBIN,TOTAL 0.5 MG/DL (0.1-1.0); CALCIUM 9.4 MG/DL (8.5-10.1); CREATININE SERUM 0.93 MG/DL (0.60-1.30); POTASSIUM 4.2 MMOL/L (3.6-5.0); TOTAL PROTEIN 7.2 GM/DL (6.4-8.2)
== END 2020-02-25 | disposition home or self-care (01) ==
LOC: ONC 13:06
PROVIDERS: ATTEND Internal Medicine Hematology & Oncology
DX: C50.211 Malignant neoplasm of upper-inner quadrant of right female breast (principal); N18.3 Chronic kidney disease, stage 3 (moderate); M85.88 Other specified disorders of bone density and structure, other site; Z17.0 Estrogen receptor positive status [ER+]; Z98.890 Other specified postprocedural states; Z79.811 Long term (current) use of aromatase inhibitors
CPT/HCPCS: 80053; 85025; 99213

== ENCOUNTER 2020-02-27 09:47 | Outpatient (RCR) | payer MEDICARE, OTHER ==
[2020-02-27 09:59] LABS: BASOPHILS % (AUTO) 1 % (0-10); EOSINOPHILS # (AUTO) 0.1 10^3/uL (0.0-0.3); EOSINOPHILS % (AUTO) 1 % (0-10); HEMATOCRIT 43 % (35-52); HEMOGLOBIN 14.3 G/DL (11.5-16.0); LYMPHOCYTES # (AUTO) 1.7 X 10^3 (1.0-4.0); LYMPHOCYTES % (AUTO) 25 % (12-44); MEAN CORPUSCULAR HEMOGLOBIN 29 PG (25-34); MEAN CORPUSCULAR HGB CONC 33 G/DL (32-36); MEAN CORPUSCULAR VOLUME 88 FL (80-99); MONOCYTES # (AUTO) 0.6 X 10^3 (0.0-1.0); MONOCYTES % (AUTO) 9 % (0-12); NEUTROPHILS # (AUTO) 4.2 X 10^3 (1.8-7.8); NEUTROPHILS % (AUTO) 64 % (42-75); PLATELET COUNT 219 10^3/uL (130-400); RED CELL DISTRIBUTION WIDTH 13.3 % (10.0-14.5); WHITE BLOOD COUNT 6.6 10^3/uL (4.3-11.0)
[2020-02-27 10:24] LABS: ALBUMIN 4.1 GM/DL (3.2-4.5); BILIRUBIN,TOTAL 0.7 MG/DL (0.1-1.0); CALCIUM 9.8 MG/DL (8.5-10.1); CREATININE SERUM 1.07 MG/DL (0.60-1.30); POTASSIUM 4.1 MMOL/L (3.6-5.0); TOTAL PROTEIN 7.2 GM/DL (6.4-8.2)
[2020-05-29 07:38] LABS: BASOPHILS % (AUTO) 1 % (0-10); EOSINOPHILS # (AUTO) 0.1 10^3/uL (0.0-0.3); EOSINOPHILS % (AUTO) 1 % (0-10); HEMATOCRIT 42 % (35-52); HEMOGLOBIN 14.2 G/DL (11.5-16.0); LYMPHOCYTES # (AUTO) 1.5 X 10^3 (1.0-4.0); LYMPHOCYTES % (AUTO) 24 % (12-44); MEAN CORPUSCULAR HEMOGLOBIN 29 PG (25-34); MEAN CORPUSCULAR HGB CONC 34 G/DL (32-36); MEAN CORPUSCULAR VOLUME 87 FL (80-99); MEAN PLATELET VOLUME 10.1 FL (7.4-10.4); MONOCYTES # (AUTO) 0.6 X 10^3 (0.0-1.0); MONOCYTES % (AUTO) 10 % (0-12); NEUTROPHILS # (AUTO) 4.1 X 10^3 (1.8-7.8); NEUTROPHILS % (AUTO) 65 % (42-75); PLATELET COUNT 199 10^3/uL (130-400); RED CELL DISTRIBUTION WIDTH 13.3 % (10.0-14.5); WHITE BLOOD COUNT 6.3 10^3/uL (4.3-11.0)
[2020-05-29 07:39] LABS: CREATININE SERUM 0.94 MG/DL (0.60-1.30); POTASSIUM 4.3 MMOL/L (3.6-5.0)
[2020-05-29 07:40] LABS: BILIRUBIN,TOTAL 0.5 MG/DL (0.1-1.0); CALCIUM 9.3 MG/DL (8.5-10.1); TOTAL PROTEIN 7.1 GM/DL (6.4-8.2)
== END 2020-05-27 | disposition home or self-care (01) ==
LOC: ONC 09:47
PROVIDERS: ATTEND Internal Medicine Hematology & Oncology
DX: C50.211 Malignant neoplasm of upper-inner quadrant of right female breast (principal); N18.3 Chronic kidney disease, stage 3 (moderate); M85.88 Other specified disorders of bone density and structure, other site; M79.10 Myalgia, unspecified site; Z98.890 Other specified postprocedural states; Z79.811 Long term (current) use of aromatase inhibitors; Z17.0 Estrogen receptor positive status [ER+]; Z79.899 Other long term (current) drug therapy
CPT/HCPCS: 80053; 85025; G0463; 99213

== ENCOUNTER → 2020-04-10 | Outpatient (CLI) | payer MEDICARE ==
[2020-04-10 14:24] LABS: HEMOGLOBIN 13.4 G/DL (11.5-16.0); MEAN PLATELET VOLUME 10.2 FL (7.4-10.4); RED CELL DISTRIBUTION WIDTH 13.1 % (10.0-14.5); WHITE BLOOD COUNT 6.7 10^3/uL (4.3-11.0)
[2020-04-10 14:34] LABS: POTASSIUM 4.2 MMOL/L (3.6-5.0)
[2020-04-10 14:35] LABS: CALCIUM 9.4 MG/DL (8.5-10.1)
[2020-04-10 14:38] LABS: BILIRUBIN,TOTAL 0.5 MG/DL (0.1-1.0)
[2020-04-10 14:40] LABS: CREATININE SERUM 1.03 MG/DL (0.60-1.30)
== END ==
LOC: LAB 14:09
PROVIDERS: ATTEND Internal Medicine
DX: I10 Essential (primary) hypertension (principal); E03.9 Hypothyroidism, unspecified; Z79.899 Other long term (current) drug therapy
CPT/HCPCS: 36415; 80053; 84443; 85027

== ENCOUNTER → 2020-05-27 | Outpatient (CLI) | payer MEDICARE ==
--- NOTE | 2020-05-27 16:45 | Diagnostic Imaging Report ---
INDICATION: Routine screening. COMPARISON: 05/23/2019 and 05/11/2018. TECHNIQUE: 2D and 3D bilateral screening mammography was performed with CAD. FINDINGS: Both breasts are heterogeneously dense, limiting the sensitivity of mammography. The overall parenchymal pattern appears to be stable. No dominant mass or malignant appearing microcalcifications are seen. The axillae are unremarkable. IMPRESSION: No mammographic features suspicious for malignancy are identified. ACR BI-RADS Category 1: Negative. Result letter will be mailed to the patient. Note: At least 10% of breast cancer is not imaged by mammography. Dictated by: Dictated on workstation # [id number]
== END ==
LOC: RAD 14:14
PROVIDERS: ATTEND Internal Medicine
DX: Z12.31 Encounter for screening mammogram for malignant neoplasm of breast (principal)
CPT/HCPCS: 77063; 77067

== ENCOUNTER 2020-08-11 13:58 | Outpatient (RCR) | payer MEDICARE ==
[2020-05-29 07:38] LABS: BASOPHILS % (AUTO) 1 % (0-10); EOSINOPHILS # (AUTO) 0.1 10^3/uL (0.0-0.3); EOSINOPHILS % (AUTO) 1 % (0-10); HEMATOCRIT 42 % (35-52); HEMOGLOBIN 14.2 G/DL (11.5-16.0); LYMPHOCYTES # (AUTO) 1.5 X 10^3 (1.0-4.0); LYMPHOCYTES % (AUTO) 24 % (12-44); MEAN CORPUSCULAR HEMOGLOBIN 29 PG (25-34); MEAN CORPUSCULAR HGB CONC 34 G/DL (32-36); MEAN CORPUSCULAR VOLUME 87 FL (80-99); MEAN PLATELET VOLUME 10.1 FL (7.4-10.4); MONOCYTES # (AUTO) 0.6 X 10^3 (0.0-1.0); MONOCYTES % (AUTO) 10 % (0-12); NEUTROPHILS # (AUTO) 4.1 X 10^3 (1.8-7.8); NEUTROPHILS % (AUTO) 65 % (42-75); PLATELET COUNT 199 10^3/uL (130-400); WHITE BLOOD COUNT 6.3 10^3/uL (4.3-11.0)
[2020-05-29 07:39] LABS: CREATININE SERUM 0.94 MG/DL (0.60-1.30); POTASSIUM 4.3 MMOL/L (3.6-5.0)
[2020-05-29 07:40] LABS: BILIRUBIN,TOTAL 0.5 MG/DL (0.1-1.0); CALCIUM 9.3 MG/DL (8.5-10.1); TOTAL PROTEIN 7.1 GM/DL (6.4-8.2)
[2020-08-11 14:06] LABS: BASOPHILS # (AUTO) 0.1 10^3/uL (0.0-0.1); BASOPHILS % (AUTO) 1 % (0-10); EOSINOPHILS # (AUTO) 0.1 10^3/uL (0.0-0.3); EOSINOPHILS % (AUTO) 1 % (0-10); HEMATOCRIT 45 % (35-52); HEMOGLOBIN 14.4 g/dL (11.5-16.0); LYMPHOCYTES # (AUTO) 1.7 10^3/uL (1.0-4.0); LYMPHOCYTES % (AUTO) 20 % (12-44); MEAN CORPUSCULAR HEMOGLOBIN 29 pg (25-34); MEAN CORPUSCULAR HGB CONC 32 g/dL (32-36); MEAN CORPUSCULAR VOLUME 91 fL (80-99); MEAN PLATELET VOLUME 10.1 fL (9.0-12.2); MONOCYTES # (AUTO) 0.7 10^3/uL (0.0-1.0); MONOCYTES % (AUTO) 8 % (0-12); NEUTROPHILS # (AUTO) 6.3 10^3/uL (1.8-7.8); NEUTROPHILS % (AUTO) 71 % (42-75); PLATELET COUNT 209 10^3/uL (130-400); WHITE BLOOD COUNT 8.9 10^3/uL (4.3-11.0)
[2020-08-11 14:24] LABS: ALBUMIN 4.1 GM/DL (3.2-4.5); BILIRUBIN,TOTAL 0.6 MG/DL (0.1-1.0); CALCIUM 9.3 MG/DL (8.5-10.1); CREATININE SERUM 1.03 MG/DL (0.60-1.30); POTASSIUM 4.1 MMOL/L (3.6-5.0); TOTAL PROTEIN 7.2 GM/DL (6.4-8.2)
== END 2020-08-26 | disposition home or self-care (01) ==
LOC: ONC 13:58
PROVIDERS: ATTEND Internal Medicine Hematology & Oncology
DX: C50.211 Malignant neoplasm of upper-inner quadrant of right female breast (principal); N18.30 Chronic kidney disease, stage 3 unspecified; M85.88 Other specified disorders of bone density and structure, other site; M79.10 Myalgia, unspecified site; Z98.890 Other specified postprocedural states; Z79.811 Long term (current) use of aromatase inhibitors; Z17.0 Estrogen receptor positive status [ER+]; Z79.899 Other long term (current) drug therapy
CPT/HCPCS: 80053; 85025; G0463; 99213

== ENCOUNTER → 2020-08-27 | Outpatient (CLI) | payer MEDICARE ==
--- NOTE | 2020-08-28 09:40 | NUR ---
Notified of positive COVID results.
== END ==
LOC: LABNPT 05:19
PROVIDERS: ATTEND Internal Medicine
DX: U07.1 COVID-19 (principal)
CPT/HCPCS: 87635

== ENCOUNTER → 2020-09-24 | Outpatient (CLI) | payer MEDICARE ==
[2020-09-24 10:06] LABS: BASOPHILS % (AUTO) 1 % (0-10); EOSINOPHILS # (AUTO) 0.1 10^3/uL (0.0-0.3); EOSINOPHILS % (AUTO) 2 % (0-10); HEMATOCRIT 43 % (35-52); HEMOGLOBIN 13.6 g/dL (11.5-16.0); LYMPHOCYTES # (AUTO) 1.3 10^3/uL (1.0-4.0); LYMPHOCYTES % (AUTO) 23 % (12-44); MEAN CORPUSCULAR HEMOGLOBIN 29 pg (25-34); MEAN CORPUSCULAR HGB CONC 32 g/dL (32-36); MEAN CORPUSCULAR VOLUME 92 fL (80-99); MEAN PLATELET VOLUME 10.1 fL (9.0-12.2); MONOCYTES # (AUTO) 0.4 10^3/uL (0.0-1.0); MONOCYTES % (AUTO) 8 % (0-12); NEUTROPHILS # (AUTO) 3.6 10^3/uL (1.8-7.8); NEUTROPHILS % (AUTO) 66 % (42-75); PLATELET COUNT 169 10^3/uL (130-400); WHITE BLOOD COUNT 5.5 10^3/uL (4.3-11.0)
[2020-09-24 10:26] LABS: ALBUMIN 3.9 GM/DL (3.2-4.5); BILIRUBIN,TOTAL 0.7 MG/DL (0.1-1.0); CALCIUM 9.1 MG/DL (8.5-10.1); CREATININE SERUM 1.05 MG/DL (0.60-1.30); POTASSIUM 4.1 MMOL/L (3.6-5.0); TOTAL PROTEIN 6.9 GM/DL (6.4-8.2)
== END ==
LOC: LAB 09:36
PROVIDERS: ATTEND Internal Medicine
DX: C50.911 Malignant neoplasm of unspecified site of right female breast (principal); E03.9 Hypothyroidism, unspecified; E78.81 Lipoid dermatoarthritis; I10 Essential (primary) hypertension; Z79.899 Other long term (current) drug therapy
CPT/HCPCS: 36415; 80053; 80061; 84443; 85025

== ENCOUNTER → 2020-12-01 | Outpatient (CLI) | payer MEDICARE ==
[2020-12-01 14:00] LABS: BASOPHILS % (AUTO) 1 % (0-10); EOSINOPHILS # (AUTO) 0.1 10^3/uL (0.0-0.3); EOSINOPHILS % (AUTO) 1 % (0-10); HEMATOCRIT 42 % (35-52); HEMOGLOBIN 13.5 g/dL (11.5-16.0); LYMPHOCYTES # (AUTO) 1.8 10^3/uL (1.0-4.0); LYMPHOCYTES % (AUTO) 25 % (12-44); MEAN CORPUSCULAR HEMOGLOBIN 30 pg (25-34); MEAN CORPUSCULAR HGB CONC 33 g/dL (32-36); MEAN CORPUSCULAR VOLUME 91 fL (80-99); MEAN PLATELET VOLUME 10.5 fL (9.0-12.2); MONOCYTES # (AUTO) 0.6 10^3/uL (0.0-1.0); MONOCYTES % (AUTO) 8 % (0-12); NEUTROPHILS # (AUTO) 4.8 10^3/uL (1.8-7.8); NEUTROPHILS % (AUTO) 65 % (42-75); PLATELET COUNT 195 10^3/uL (130-400); WHITE BLOOD COUNT 7.3 10^3/uL (4.3-11.0)
[2020-12-01 14:18] LABS: BILIRUBIN,TOTAL 0.5 MG/DL (0.1-1.0); CALCIUM 9.3 MG/DL (8.5-10.1); CREATININE SERUM 1.14 MG/DL (0.60-1.30); POTASSIUM 4.3 MMOL/L (3.6-5.0); TOTAL PROTEIN 7.2 GM/DL (6.4-8.2)
== END ==
LOC: EDSTATUS 08-27 10:10 → ONC 13:43
PROVIDERS: ATTEND Internal Medicine Hematology & Oncology
DX: C50.111 Malignant neoplasm of central portion of right female breast (principal); M85.80 Other specified disorders of bone density and structure, unspecified site; N18.30 Chronic kidney disease, stage 3 unspecified
CPT/HCPCS: 80053; 85025; G0463; 99213

== ENCOUNTER → 2020-12-15 | Outpatient (CLI) | payer MEDICARE ==
--- NOTE | 2020-12-15 12:17 | Diagnostic Imaging Report ---
INDICATION: LT KNEE NODULE, OVER THE TIBIAL TUBEROSITY TECHNIQUE: 3 views of the left knee CORRELATION STUDY: None FINDINGS: The joint spaces are maintained. The articular surfaces are smooth and preserved. There is no acute bony abnormality. There is mild thin, elongated spurlike projection off the tibial tuberosity. Minimal spur like formation superior pole of patella anteriorly. IMPRESSION: 1. Negative for acute bony abnormality of the knee. There is a thin, bony projection projecting superiorly off the tibial tuberosity likely accounting for the patient's palpable abnormality. This is of no current clinical or acute significance. Dictated by: Dictated on workstation # [id number]
== END ==
LOC: RAD 10:29
PROVIDERS: ATTEND Physician Assistant
DX: R22.42 Localized swelling, mass and lump, left lower limb (principal)
CPT/HCPCS: 73562

== ENCOUNTER 2021-01-28 05:35 | Outpatient (CLI) | payer MEDICARE ==
[~2021-01-28] VITALS: Ht 152.4 cm; Wt 61.2 kg
== END 2021-01-28 11:54 | disposition home or self-care (01) ==
LOC: PREOP 05:35
PROVIDERS: ATTEND Surgery
DX: Z01.818 Encounter for other preprocedural examination (principal)

== ENCOUNTER 2021-02-04 08:50 | Day surgery (SDC) | payer MEDICARE ==
[~2021-02-04] VITALS: Ht 152.2 cm; Wt 61.2 kg
[~2021-02-04 08:50] MED LIST changes: +LACTATED RINGERS 1,000 ML IV ONE
[2021-02-04] MEDS ORDERED: LACTATED RINGERS 1,000 ML IV STA (08:51)
[2021-02-04] MEDS ORDERED: LIDOCAINE JELLY 2% 6 ML SYRINGE MM PRN (09:00)
[2021-02-04] MEDS ORDERED: proPOfol 200 MG/20 ML (DIPRIVAN) VIAL IV ONE (09:02)
[2021-02-04 09:16] VITALS: BP 152/73
[2021-02-04] MEDS ORDERED: LIDOCAINE JELLY 2% 6 ML SYRINGE ONE (09:17)
--- NOTE | 2021-02-04 09:33 | Progress Note-Pre Operative ---
Pre-Operative Progress Note H&P Reviewed The H&P was reviewed, patient examined and no changes noted. Date Seen by Provider: Feb 04, 2021 Time Seen by Provider: 09:00 Date H&P Reviewed: Feb 04, 2021 Time H&P Reviewed: 09:00 Pre-Operative Diagnosis: screening FRANCY Gregorio MD Feb 04, 2021 09:33
--- NOTE | 2021-02-04 09:34 | Discharge Inst-Surgical ---
D/C Lap Instructions-ARCENIO Follow Up Activity as tolerated High Fiber Diet 25g or more per day Avoid Alcohol, Caffeine, Spicy [place] and Acid foods. Drink 64 fluid oz or more of fluids per day. Symptoms to Report: Fever over 101 degree F, Nausea/Vomiting If any problems/questions: Contact your physician or go to Emergency Room FRANCY RG MD Feb 04, 2021 09:34
[2021-02-04] MEDS ORDERED: HYDROcodone/APAP 5 MG/325 MG (LORTAB) TAB PO PRN (09:45)
[2021-02-04] MEDS ORDERED: morphine INJ 10 MG/ML 1ML (SYR OR VIAL) IVP PRN ×2 (09:45)
[2021-02-04] MEDS ORDERED: ONDANSETRON 4 MG/2 ML (SDV) Z0FRAN IVP PRN (09:45)
[2021-02-04] MEDS ORDERED: ACETAMINOPHEN 325 MG TABLET PO PRN (09:45)
[2021-02-04 09:55] VITALS: BP 151/70
[2021-02-04 10:00] VITALS: BP 130/62
[2021-02-04 10:05] VITALS: BP 133/67
--- NOTE | 2021-02-04 10:06 | Anesthesia-General Post-Op ---
MAC Patient Condition Mental Status/LOC: Same as Preop Cardiovascular: Satisfactory Nausea/Vomiting: Absent Respiratory: Satisfactory Pain: Controlled Complications: Absent Post Op Complications Complications None Follow Up Care/Instructions Patient Instructions None needed. Anesthesiology Discharge Order Discharge Order Patient is doing well, no complaints, stable vital signs, no apparent adverse anesthesia problems. MIRNA LAIRD DO Feb 04, 2021 10:06
[2021-02-04 10:10] VITALS: BP 152/73
--- NOTE | 2021-02-04 10:18 | Progress Note-Post Operative ---
Post-Operative Progess Note Surgeon (s)/Industrial Engineering Analyst (s) Surgeon FRANCY RG MD Industrial Engineering Analyst: none Pre-Operative Diagnosis screening colo Post-Operative Diagnosis mild chronic stage 2 ext and int hemorrhoids, moderate sigmoid diverticulosis, moderate colitis cecum and ascending colon Procedure & Operative Findings Date of Procedure 02/04/21 Procedure Performed/Findings colonoscopy with bx. Anesthesia Type mac Estimated Blood Loss Estimated blood loss (mL): minimal Specimens/Packing Specimens Removed cecum FRANCY RG MD Feb 04, 2021 10:18
[2021-02-04 10:36] VITALS: BP 130/72
--- NOTE | 2021-02-04 14:33 | OPERATIVE REPORT ---
DATE OF SERVICE: 02/04/2021 ATTENDING PRIMARY CARE PHYSICIAN: Abiodun Jensen MD PREOPERATIVE DIAGNOSES: Diarrhea, positive Cologuard test screening. POSTOPERATIVE DIAGNOSES: Mild chronic stage II external and internal hemorrhoids, moderate sigmoid diverticulosis, mild inflammation of the cecum and ascending colon. PROCEDURE: Colonoscopy with biopsy. SURGEON: Francy Rg MD ANESTHESIA: Monitored anesthesia care. ESTIMATED BLOOD LOSS: Minimal. FINDINGS: Same as postoperative diagnosis. DISPOSITION: The patient tolerated the procedure well. INDICATIONS: The patient is an 80-year-old female known to us. 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 She was referred to the office for a positive Cologuard test as well as diarrhea. She states that she has three loose bowel movements daily, which is unusual for her. DESCRIPTION OF PROCEDURE: The patient was brought to the endoscopy suite, laid in the left lateral decubitus position. After adequate IV pain and sedative medications and monitored anesthesia care, a digital rectal examination was performed. Mild chronic stage II external and internal hemorrhoids were identified, which were not actively edematous nor inflamed and no bleeding. Normal sphincter tone was felt and there were no palpable masses. The endoscope was then intubated into the anus and rectum gently insufflated. The endoscope was then advanced to the valves of [place] of the rectum with no polyps or any neoplasms identified. Through the sigmoid colon, a moderate sigmoid diverticulosis was identified. There were no mucosal inflammatory changes to indicate any active diverticulitis. The endoscope was then advanced to the remainder of the descending, transverse and ascending colon to the cecum. At the level of the cecum as well as proximal ascending colon, was a mild to moderate colitis and biopsies were taken with forceps with visualization of good hemostasis. The endoscope was then slowly withdrawn while taking a second look and suctioning of residual air with no additional findings. The patient tolerated the procedure well. The endoscope was then slowly withdrawn while taking a second look and suctioning of residual air with no additional findings. The patient tolerated the procedure well. We are unsure of the etiology of the colitis; however, may be related to mild ischemic colitis versus a mild intermittent undiagnosed inflammatory bowel disease. We will await the biopsy results and monitor her symptoms and treat her appropriately if she continues to be symptomatic. Job ID: [id number] DocumentID: [id number] Dictated Date: 02/04/2021 10:05:28 [employer] Date: 02/04/2021 14:33:26 Dictated By: FRANCY RG MD
== END 2021-02-04 11:20 | disposition home or self-care (01) ==
LOC: ENDO 08:50
PROVIDERS: ATTEND Surgery
DX: K64.1 Second degree hemorrhoids (principal); K57.30 Diverticulosis of large intestine without perforation or abscess without bleeding; R19.5 Other fecal abnormalities; I10 Essential (primary) hypertension; E03.9 Hypothyroidism, unspecified; Z79.899 Other long term (current) drug therapy; Z79.890 Hormone replacement therapy; Z85.3 Personal history of malignant neoplasm of breast
CPT/HCPCS: 88305

== ENCOUNTER → 2021-04-21 | Outpatient (CLI) | payer MEDICARE ==
[~2021-04-21] MED LIST changes: -LACTATED RINGERS 1,000 ML IV ONE
[2021-04-21 09:48] LABS: BASOPHILS # (AUTO) 0.1 10^3/uL (0.0-0.1); BASOPHILS % (AUTO) 1 % (0-10); EOSINOPHILS # (AUTO) 0.1 10^3/uL (0.0-0.3); EOSINOPHILS % (AUTO) 2 % (0-10); HEMATOCRIT 42 % (35-52); LYMPHOCYTES # (AUTO) 1.4 X 10^3 (1.0-4.0); LYMPHOCYTES % (AUTO) 23 % (12-44); MEAN CORPUSCULAR HEMOGLOBIN 29 pg (25-34); MEAN CORPUSCULAR HGB CONC 33 g/dL (32-36); MEAN CORPUSCULAR VOLUME 89 fL (80-99); MEAN PLATELET VOLUME 10.3 fL (9.0-12.2); MONOCYTES # (AUTO) 0.5 X 10^3 (0.0-1.0); MONOCYTES % (AUTO) 9 % (0-12); NEUTROPHILS % (AUTO) 65 % (42-75); PLATELET COUNT 194 10^3/uL (130-400); WHITE BLOOD COUNT 6.2 10^3/uL (4.3-11.0)
[2021-04-21 10:10] LABS: ALBUMIN 4.1 GM/DL (3.2-4.5); BILIRUBIN,TOTAL 0.8 MG/DL (0.1-1.0); CALCIUM 9.1 MG/DL (8.5-10.1); CREATININE SERUM 1.01 MG/DL (0.60-1.30); POTASSIUM 4.3 MMOL/L (3.6-5.0); TOTAL PROTEIN 7.2 GM/DL (6.4-8.2)
== END ==
LOC: LAB 08:54
PROVIDERS: ATTEND Nurse Practitioner Family
DX: Z00.00 Encounter for general adult medical examination without abnormal findings (principal); I10 Essential (primary) hypertension; E03.9 Hypothyroidism, unspecified; E55.9 Vitamin D deficiency, unspecified
CPT/HCPCS: 36415; 80053; 80061; 82306; 84443; 85025

== ENCOUNTER → 2021-05-29 | Outpatient (CLI) | payer MEDICARE ==
--- NOTE | 2021-06-01 09:03 | Diagnostic Imaging Report ---
INDICATION: Routine screening. COMPARISON: Prior mammogram of 05/27/2020 and 05/23/2019. TECHNIQUE: 2D and 3D bilateral screening mammography was performed with CAD. FINDINGS: Both breasts are heterogeneously dense, limiting the sensitivity of mammography. Occasional benign calcifications are noted. No mass or malignant appearing microcalcifications are seen. The overall parenchymal pattern is stable. The axillae are unremarkable. IMPRESSION: No mammographic features suspicious for malignancy are identified. ACR BI-RADS Category 2: Benign findings. Result letter will be mailed to the patient. Note: At least 10% of breast cancer is not imaged by mammography. Dictated by: Dictated on workstation # [id number]
== END ==
LOC: RAD 14:45
PROVIDERS: ATTEND Nurse Practitioner Adult Health
DX: Z12.31 Encounter for screening mammogram for malignant neoplasm of breast (principal); Z85.3 Personal history of malignant neoplasm of breast
CPT/HCPCS: 77063; 77067

== ENCOUNTER → 2021-07-13 | Outpatient (CLI) | payer MEDICARE ==
[2021-07-13 15:47] LABS: BASOPHILS % (AUTO) 0 % (0-10); EOSINOPHILS # (AUTO) 0.1 10^3/uL (0.0-0.3); EOSINOPHILS % (AUTO) 1 % (0-10); HEMATOCRIT 43 % (35-52); HEMOGLOBIN 14.1 g/dL (11.5-16.0); LYMPHOCYTES # (AUTO) 1.9 X 10^3 (1.0-4.0); LYMPHOCYTES % (AUTO) 21 % (12-44); MEAN CORPUSCULAR HEMOGLOBIN 30 pg (25-34); MEAN CORPUSCULAR HGB CONC 33 g/dL (32-36); MEAN CORPUSCULAR VOLUME 91 fL (80-99); MEAN PLATELET VOLUME 9.9 fL (9.0-12.2); MONOCYTES # (AUTO) 0.7 X 10^3 (0.0-1.0); MONOCYTES % (AUTO) 7 % (0-12); NEUTROPHILS # (AUTO) 6.4 X 10^3 (1.8-7.8); NEUTROPHILS % (AUTO) 71 % (42-75); PLATELET COUNT 215 10^3/uL (130-400); WHITE BLOOD COUNT 9.1 10^3/uL (4.3-11.0)
[2021-07-13 16:11] LABS: ALBUMIN 4.1 GM/DL (3.2-4.5); BILIRUBIN,TOTAL 0.6 MG/DL (0.1-1.0); CALCIUM 9.8 MG/DL (8.5-10.1); CREATININE SERUM 1.02 MG/DL (0.60-1.30); POTASSIUM 4.5 MMOL/L (3.6-5.0); TOTAL PROTEIN 7.3 GM/DL (6.4-8.2)
== END ==
LOC: ONC 15:13
PROVIDERS: ATTEND Internal Medicine Hematology & Oncology
DX: C50.211 Malignant neoplasm of upper-inner quadrant of right female breast (principal); N18.30 Chronic kidney disease, stage 3 unspecified; M85.851 Other specified disorders of bone density and structure, right thigh; Z90.11 Acquired absence of right breast and nipple
CPT/HCPCS: 80053; 82306; 85025; G0463; 99213

== ENCOUNTER → 2021-09-07 | Outpatient (CLI) | payer MEDICARE ==
[~2021-09-07] MED LIST changes: -LISI1TAB29 PO; +LISI1TAB44 PO
--- NOTE | 2021-09-07 16:16 | Diagnostic Imaging Report ---
HISTORY: Left hip pain for two weeks. TECHNIQUE: Two views of the left hip. COMPARISON: None. FINDINGS: There are mild degenerative changes in the left hip joint. Alignment is normal. No fracture is seen. Left sacroiliac joint space is preserved. IMPRESSION: 1. Mild degenerative change of the left hip with no acute osseous abnormality seen. Dictated by: Dictated on workstation # [id number]
--- NOTE | 2021-09-07 16:19 | Diagnostic Imaging Report ---
HISTORY: Low back pain and left hip pain TECHNIQUE: 3 views of the lumbar spine COMPARISON: None FINDINGS: There is slight left convex curvature of the upper lumbar spine which may be positional. There is grade 1 anterolisthesis at L5-S1. There are moderate degenerative changes at L4-L5 and L5-S1 with mild degenerative change elsewhere. Vertebral body heights are preserved. No acute fracture is seen. There is multilevel facet arthropathy. Bilateral sacroiliac joints are patent. IMPRESSION: 1. Degenerative changes in the lumbar spine with no acute fracture seen. Dictated by: Dictated on workstation # [id number]
== END ==
LOC: RAD 13:40
PROVIDERS: ATTEND Family Medicine
DX: M47.816 Spondylosis without myelopathy or radiculopathy, lumbar region (principal); M16.12 Unilateral primary osteoarthritis, left hip
CPT/HCPCS: 72100; 73502

== ENCOUNTER → 2021-11-06 | Outpatient (CLI) | payer MEDICARE ==
--- NOTE | 2021-11-06 10:27 | Diagnostic Imaging Report ---
PROCEDURE: MRI lumbar spine. TECHNIQUE: Multiplanar, multisequence MRI of the lumbar spine was performed without contrast. INDICATION: Low back pain. No prior studies are available for comparison. Curvature of the lumbar spine is normal. There is minimal anterolisthesis of L5 on S1. Vertebral body heights are maintained. There is no compression fracture. No geographic marrow lesion is seen. There is some generalized disc desiccation compatible with degenerative disc disease. The conus is unremarkable at the L1 level. T12-L1: Central canal and neural foramina are widely patent. L1-L2: Central canal and neural foramina are widely patent. L2-L3: Central canal is widely patent. Neural foramina are patent. L3-L4: There is broad-based disc/osteophyte complex flattening the ventral thecal sac. There are also hypertrophic facet changes. Central canal is patent but there is significant narrowing of bilateral lateral recesses. There is also moderate bilateral neural foraminal narrowing. L4-L5: Broad-based disc/osteophyte complex as well as ligamentous thickening and hypertrophic facet changes are noted. This does result in moderate trefoil stenosis of the central canal. Severe bilateral lateral recess stenosis is noted. There is also moderate bilateral neural foraminal stenosis. L5-S1: There is broad-based disc/osteophyte complex indenting the ventral thecal sac. Asymmetric left para-midline broad-based bulging is noted producing severe left lateral recess stenosis. There is severe left neural foraminal stenosis and moderate right neural foraminal stenosis. Mild central canal narrowing is seen. There are hypertrophic facet changes noted. Paraspinous tissues are unremarkable. IMPRESSION: Multilevel lumbar spondylosis with multilevel central canal, lateral recess and neural foraminal stenosis described level by level above. No acute compression fracture is detected. Dictated by: Dictated on workstation # [id number]
== END ==
LOC: RAD 08:45
PROVIDERS: ATTEND Family Medicine
DX: M47.27 Other spondylosis with radiculopathy, lumbosacral region (principal); M51.17 Intervertebral disc disorders with radiculopathy, lumbosacral region; M48.07 Spinal stenosis, lumbosacral region
CPT/HCPCS: 72148

== ENCOUNTER → 2022-05-31 | Outpatient (CLI) | payer MEDICARE ==
--- NOTE | 2022-05-31 12:52 | Diagnostic Imaging Report ---
INDICATION: Routine screening. COMPARISON: 05/29/2021 and 05/27/2020. TECHNIQUE: 2D and 3D bilateral screening mammography was performed with CAD. FINDINGS: Both breasts are heterogeneously dense, limiting the sensitivity of mammography. The parenchymal pattern is stable. No mass or malignant-appearing microcalcifications are seen. There are benign calcifications present. The axillae are unremarkable. IMPRESSION: No mammographic features suspicious for malignancy are identified. ACR BI-RADS Category 2: Benign findings. Result letter will be mailed to the patient. Note: At least 10% of breast cancer is not imaged by mammography. Dictated by: Dictated on workstation # [id number]
== END ==
LOC: RAD 09:44
PROVIDERS: ATTEND Internal Medicine Hematology & Oncology
DX: Z12.31 Encounter for screening mammogram for malignant neoplasm of breast (principal); Z85.3 Personal history of malignant neoplasm of breast; Z80.3 Family history of malignant neoplasm of breast
CPT/HCPCS: 77063; 77067

== ENCOUNTER → 2022-11-16 | Outpatient (CLI) | payer MEDICARE ==
--- NOTE | 2022-11-16 17:09 | Diagnostic Imaging Report ---
INDICATION: Postmenopausal screening for osteoporosis COMPARISON: 08/21/2019 FINDINGS: AP Spine L1-L4: [BMD (g/cm2): 1.162] [T-Score: -0.3] [Z-Score: 1.8] [BMD Previous: 1.108] [BMD % Change: 4.9] LT Hip Neck: [BMD (g/cm2): 0.854] [T-Score: -1.3] [Z-Score: 1.1] LT Hip Total: [BMD (g/cm2):0.940] [T-Score:-0.5] [Z-Score: 1.8] [BMD Previous: 1.003] [BMD % Change: -6.3] RT Hip Neck: [BMD (g/cm2):0.826] [T-Score:-1.5] [Z-Score:0.9] RT Hip Total: [BMD (g/cm2):0.951] [T-score:-0.4] [Z-Score:1.9] [BMD Previous:0.975] [BMD % Change:-2.5] *Indicates significant change from prior examination based on 95% confidence level. World Health Organization criteria for BMD interpretation classify patients as Normal (T-score at or above -1.0), Osteopenic (T-score between -1.0 and -2.5) or Osteoporotic (T-score at or below -2.5). LIMITATIONS AND MODIFICATION: None. FRACTURE RISK (FRAX SCORE): The ten year probability of (%): Major Osteoporotic Fracture: [13.9] Hip Fracture: [3.7] IMPRESSION: 1. Normal bone mineral density. 2. There has been a statistically significant increase in BMD since prior exam, detailed above. 3. See below National Osteoporosis Foundation guidelines on when to potentially initiate pharmacologic therapy. Based on the National Osteoporosis Foundation Guidelines, pharmacologic treatment should be initiated in any of the following, unless clinical conditions suggest otherwise: * Any patient with prior fragility fracture of the hip or vertebrae. A spine fracture indicates 5X risk for subsequent spine fracture and 2X risk for subsequent hip fracture. * Osteoporosis (T-score <-2.5). * Postmenopausal women and men age 50 and older with low bone mass/osteopenia (T-score between -1.0 and -2.5) by DXA and 10-year major osteoporotic fracture greater than 20% or a 10-year probability of hip fracture greater than 3%. These fracture risks are supplied above in the FRAX score, if applicable. * Clinician judgement and/or patient preferences may indicate treatment for people with 10-year fracture probabilities above or below these levels. Dictated by: Dictated on workstation # [id number]
== END ==
LOC: RAD 13:30
PROVIDERS: ATTEND Nurse Practitioner
DX: C50.111 Malignant neoplasm of central portion of right female breast (principal); Z78.0 Asymptomatic menopausal state
CPT/HCPCS: 77080

== ENCOUNTER 2023-04-14 23:06 | Emergency (ER) | payer MEDICARE ==
--- NOTE | 2023-04-14 23:39 | ED General ---
General Chief Complaint: Dizziness/Syncope Stated Complaint: DIZZINESS Nursing Triage Note: PT TO [facility] 5 BY EMS WITH CC DIZZINESS. PT STATES WAS AT HOME BRUSHING HER TEETH WHEN SHE BECAME DIZZY AROUND 2200. PT STATES WENT TO HER KNEES TO PREVENT FALLING. PT DENIES LOC. PT A&OX4 Source of Information: Patient Exam Limitations: No Limitations History of Present Illness Date Seen by Provider: Apr 14, 2023 Time Seen by Provider: 23:30 Initial Comments This 82-year-old woman presents to the emergency room after having a lightheaded near syncopal episode around 2200. She had been sitting in a chair and got up to go to bed when she suddenly felt very dizzy. She lowered herself to the floor without incident. While sitting on the floor her symptoms resolved. She describes no other associated symptoms such as chest pain, shortness of breath, etc. She did have a similar fleeting episode about 1 week ago. She cannot recall the circumstances associated with that episode. She is generally rather healthy and has very few health problems. She takes levothyroxine for hypothy roidism. She otherwise takes no medications. She is moderately hypertensive during assessment. Vital signs are otherwise unremarkable. Allergies and Home Medications Allergies Coded Allergies: No Known Drug Allergies (Unverified , 05/25/18) Patient Home Medication List Home Medication List Reviewed: Yes Biotin (Biotin) 1,000 Mcg Tablet, 1,000 MCG PO DAILY, (Reported) Entered as Reported by: DINA ALEJANDRE on 06/13/181550 Cephalexin (Cephalexin) 500 Mg Tablet, 500 MG PO TID Prescribed by: SWATHI HERNANDEZ on 04/15/23 0333 Cholecalciferol (Vitamin D3) (Vitamin D) 2,000 Unit Tablet, 2,000 UNIT PO DAILY, (Reported) Entered as Reported by: DINA ALEJANDRE on 06/13/181550 Levothyroxine Sodium (Levothyroxine Sodium) 75 Mcg Tablet, 75 MCG PO DAILY, (Reported) Entered as Reported by: DINA ALEJANDRE on 06/13/181550 Lisinopril/Hydrochlorothiazide (Lisinopril-Hctz 10-12.5 mg Tab) 1 Each Tablet, 1 EACH PO DAILY, (Reported) Entered as Reported by: DINA ALEJANDRE on 06/13/181550 Magnesium Oxide (Magnesium) 250 Mg Tablet, 250 MG PO DAILY, (Reported) Entered as Reported by: DINA ALEJANDRE on 06/13/181550 Potassium Chloride (Potassium Chloride) 10 Meq Tablet.er, 10 MEQ PO DAILY, (Reported) Entered as Reported by: DINA ALEJANDRE on 06/13/181550 Review of Systems Review of Systems Constitutional: no symptoms reported EENTM: no symptoms reported Respiratory: no symptoms reported Cardiovascular: see HPI Gastrointestinal: no symptoms reported Genitourinary: no symptoms reported : No Musculoskeletal: no symptoms reported Skin: no symptoms reported Psychiatric/Neurological: See HPI Hematologic/Lymphatic: No Symptoms Reported Immunological/Allergic: no symptoms reported Past Djyonpw-Dgvlbr-Jepynd Hx Patient Social History Tobacco Use?: No Substance use?: No Alcohol Use?: Yes Alcohol type: Wine Alcohol Frequency: Once in a while Pt feels they are or have been: No Immunizations Up To Date Tetanus Booster (TDap): Unknown PED Vaccines UTD: No Seasonal Allergies Seasonal Allergies: No Past Medical History Surgeries: Yes Appendectomy, Lumpectomy Respiratory: No Cardiac: No Neurological: No Gastrointestinal: No Musculoskeletal: Yes (occasional muscle cramps in legs) Endocrine: Yes Hypothyroidsim Cancer: Yes Breast Did You Recieve Any Treatments: Yes What Type of Treatment Did You: Surgical Intervention Psychosocial: No Integumentary: No Blood Disorders: No Physical Exam Vital Signs Vital Signs - First Documented 04/14/23 23:09 Temp 36.2 Pulse 81 Resp 18 B/P (MAP) 161/65 (97) Pulse Ox 99 O2 Delivery Room Air Capillary Refill : Less Than 3 Seconds Height, Weight, BMI Height: 5'0.00" Weight: 135lbs. 0.0oz. [id number]; 26.41 BMI Method: General Appearance: No Apparent Distress, WD/WN HEENT: PERRL/EOMI, Normal ENT Inspection, Other (Mucous membranes moist) Neck: Normal Inspection; No Carotid Bruit, No JVD Respiratory: Lungs Clear, Normal Breath Sounds, No Accessory Muscle Use Cardiovascular: Regular Rate, Rhythm, No Edema, No Murmur Gastrointestinal: Non Tender, Soft; No Distended Extremity: Normal Inspection, No Pedal Edema Neurologic/Psychiatric: Alert, Oriented x3, No Motor/Sensory Deficits, Normal Mood/Affect Skin: Normal Color, Warm/Dry Progress/Results/Core Measures Suspected Sepsis SIRS Temperature: Pulse: 81 Respiratory Rate: 18 Laboratory Tests 04/14/23 23:12: White Blood Count 8.6 Blood Pressure 161 /65 Mean: 97 Laboratory Tests 04/14/23 23:12: Creatinine 1.08, Platelet Count 175 Results/Orders Lab Results Laboratory Tests Test 04/14/23 00:28 04/14/23 23:12 Range/Units Urine Color YELLOW Urine Clarity SL CLOUDY Urine pH 5.5 5-9 Urine Specific [place] 1.010 L 1.016-1.022 Urine Protein NEGATIVE NEGATIVE Urine Glucose (UA) NEGATIVE NEGATIVE Urine Ketones NEGATIVE NEGATIVE Urine Nitrite NEGATIVE NEGATIVE Urine Bilirubin NEGATIVE NEGATIVE Urine Urobilinogen 0.2 < = 1.0 MG/DL Urine Leukocyte Esterase 2+ H NEGATIVE Urine RBC (Auto) TRACE-I H NEGATIVE Urine RBC RARE /HPF Urine WBC 2-5 /HPF Urine Squamous Epithelial Cells NONE /HPF Urine Crystals NONE /LPF Urine Bacteria FEW H /HPF Urine Casts NONE /LPF Urine Mucus NEGATIVE /LPF Urine Culture Indicated NO White Blood Count 8.6 4.3-11.0 10^3/uL Red Blood Count 4.32 3.80-5.11 10^6/uL Hemoglobin 12.6 11.5-16.0 g/dL Hematocrit 39 35-52 % Mean Corpuscular Volume 90 80-99 fL Mean Corpuscular Hemoglobin 29 25-34 pg Mean Corpuscular Hemoglobin Concent 33 32-36 g/dL Red Cell Distribution Width 13.2 10.0-14.5 % Platelet Count 175 130-400 10^3/uL Mean Platelet Volume 10.2 9.0-12.2 fL Immature Granulocyte % (Auto) 1 % Neutrophils (%) (Auto) 63 42-75 % Lymphocytes (%) (Auto) 25 12-44 % Monocytes (%) (Auto) 10 0-12 % Eosinophils (%) (Auto) 1 0-10 % Basophils (%) (Auto) 1 0-10 % Neutrophils # (Auto) 5.4 1.8-7.8 10^3/uL Lymphocytes # (Auto) 2.1 1.0-4.0 10^3/uL Monocytes # (Auto) 0.8 0.0-1.0 10^3/uL Eosinophils # (Auto) 0.1 0.0-0.3 10^3/uL Basophils # (Auto) 0.1 0.0-0.1 10^3/uL Immature Granulocyte # (Auto) 0.0 0.0-0.1 10^3/uL Sodium Level 143 135-145 MMOL/L Potassium Level 4.0 3.6-5.0 MMOL/L Chloride Level 108 H 98-107 MMOL/L Carbon Dioxide Level 26 21-32 MMOL/L Anion Gap 9 5-14 MMOL/L Blood Urea Nitrogen 19 H 7-18 MG/DL Creatinine 1.08 0.60-1.30 MG/DL Estimat Glomerular Filtration Rate 51 BUN/Creatinine Ratio 18 Glucose Level 103 70-105 MG/DL Calcium Level 9.5 8.5-10.1 MG/DL Magnesium Level 2.4 1.6-2.4 MG/DL Thyroid Stimulating Hormone (TSH) 0.51 0.35-4.94 UIU/ML Free Thyroxine 1.14 0.70-1.48 NG/DL My Orders Orders - SWATHI PALACIO MD Ed Iv/Invasive Line Start (04/14/23 23:19) Ekg Tracing (04/14/23 23:19) Monitor-Rhythm Ecg Trace Only (04/14/23 23:19) Basic Metabolic Panel (04/14/23 23:32) Cbc With Automated Diff (04/14/23 23:32) Magnesium (04/14/23 23:32) Ua Culture If Indicated (04/14/23 23:32) Thyroid Stimulating Hormone (04/14/23 23:32) Free T4 (Free Thyroxine) (04/14/23 23:32) Urine Culture (04/15/23 01:14) Ct Angio Head/Neck (04/15/23 01:28) Lactated Ringers (Lr 1000 Ml Iv Solution (04/15/23 01:30) Iohexol Injection (Omnipaque 350 Mg/Ml 1 (04/15/23 02:45) Received Contrast (Hold Metformin- Contr (04/15/23 02:45) Ns (Ivpb) (Sodium Chloride 0.9% Ivpb Bag (04/15/23 02:45) Cephalexin Capsule (Keflex Capsule) (04/15/23 03:15) Medications Given in ED Current Medications Medications Dose Ordered Sig/Lukas Route Start Time Stop Time Status Last Admin Dose Admin Iohexol 100 ml ONCE ONCE IV 04/15/23 02:45 04/15/23 02:58 DC 04/15/23 02:42 75 ML Lactated Ringer's 1,000 ml @ 0 mls/hr Q0M ONCE IV 04/15/23 01:30 04/15/23 01:31 DC 04/15/23 02:00 999 MLS/HR Sodium Chloride 100 ml ONCE ONCE IV 04/15/23 02:45 04/15/23 02:58 DC 04/15/23 02:42 80 ML Vital Signs/I&O 04/14/23 04/14/23 23:09 23:40 Temp 36.2 Pulse 81 78 80 77 Resp 18 B/P (MAP) 161/65 (97) 168/76 (106) 174/79 (110) 164/69 (100) Pulse Ox 99 O2 Delivery Room Air Capillary Refill : Less Than 3 Seconds Blood Pressure Mean: 97 Progress Note #1: Time: 01:30 Progress Note Patient was interviewed and examined shortly after arrival. Labs and EKG were obtained and interpreted by me. EKG was reviewed and interpreted by me as unremarkable. See details below. CBC, BMP, magnesium, TSH, and free T4 were normal. GFR was marginal at 51. Creatinine was near baseline when compared with prior labs. Urinalysis demonstrated 2-5 WBC, 1+ leukocyte esterase, and few bacteria. Urine culture was added to the orders. Orthostatic blood pressures were obtained. There were no abnormal changes in orthostatic positions, but patient did feel lightheaded, particularly when moving from lying to sitting. I discussed the work-up results with patient and family. We discussed treating potential UTI versus waiting for cultures. They prefer to treat now and review cultures when they are available. We also discussed the potential for further evaluation of her positional lightheadedness. I offered CT angiogram in the ER versus encouraging pursuit of carotid ultrasound in the outpatient setting. They have elected to pursue CT angiogram in the ER. CT angiogram head and neck has been ordered. Finally, I offered to provide IV hydration and repeat a trial of sitting and standing after hydration. They would like to pursue IV hydration as well. Both patient and family were involved in the decision-making process. Progress Note #2: Progress Note Dizziness resolved after IV hydration. Patient ambulated to the restroom without dizziness. CT angiogram of the head and neck revealed no stenosis per [facility] report. There were no intracranial abnormalities appreciated either. Keflex was given for treatment of potential UTI. See discharge instructions for further discussion. ECG Initial ECG Impression Date: Apr 14, 2023 Initial ECG Impression Time: 23:30 Initial ECG Rate: 71 Initial ECG Rhythm: Normal Sinus Initial ECG Intervals: Normal Initial ECG Impression: Normal Comment Normal sinus rhythm with no ST elevation or depression. No abnormal intervals or axis deviation. Diagnostic Imaging Diagonstic Imaging: CT Plain Films/CT/US/NM/MRI: other (Angiogram head and neck) Comments CT angiogram head and neck report from [facility] was reviewed. There were no intracranial abnormalities. There were no significant findings of stenosis in the large vessels of the head or neck. Departure Impression Primary Impression: Lightheadedness Additional Impression: Urinary tract infection Qualified Codes: N39.0 - Urinary tract infection, site not specified Disposition: 20 Condition: Improved Departure-Patient Inst. Decision time for Depature: 03:30 Referrals: SLAVA WATSON MD (PCP/Family) Primary Care Physician Patient Instructions: Urinary Tract Infection, Adult ED Add. Discharge Instructions: There was no evidence of narrowing in the arteries of your neck on the CT scan performed in the ER. Your dizziness may have been due to early dehydration. Please be sure to drink plenty of clear liquids to stay well-hydrated, especially when the weather is hot. Urine cultures are in progress. Continue the antibiotic prescribed until you can review urine cultures with your doctor. Urine culture should be available in 2 or [address] Watson's office on Tuesday to review the urine culture results if you do not hear from the ER prior to that. Use extra caution and take your time when getting up from a sitting or lying position. If you feel lightheaded, sit or lie back down to prevent falls. Return to the emergency room if you have worsening symptoms despite hydrating well and treating the urinary tract infection. All discharge instructions reviewed with patient and/or family. Voiced understanding. Scripts Cephalexin (Cephalexin) 500 Mg Tablet 500 MG PO TID, #15 TAB Prov: SWATHI PALACIO MD 04/15/23 Copy Copies To 1: SLAVA WATSON MD, JOSHUA T MD Apr 14, 2023 23:39
[2023-04-14 23:40] VITALS: BP_SYST 164; BP_SYST 168; BP_SYST 174; BP_DIAS 69; BP_DIAS 76; BP_DIAS 79
[2023-04-14 23:41] LABS: BASOPHILS # (AUTO) 0.1 10^3/uL (0.0-0.1); BASOPHILS % (AUTO) 1 % (0-10); EOSINOPHILS # (AUTO) 0.1 10^3/uL (0.0-0.3); EOSINOPHILS % (AUTO) 1 % (0-10); HEMATOCRIT 39 % (35-52); HEMOGLOBIN 12.6 g/dL (11.5-16.0); LYMPHOCYTES # (AUTO) 2.1 10^3/uL (1.0-4.0); LYMPHOCYTES % (AUTO) 25 % (12-44); MEAN CORPUSCULAR HEMOGLOBIN 29 pg (25-34); MEAN CORPUSCULAR HGB CONC 33 g/dL (32-36); MEAN CORPUSCULAR VOLUME 90 fL (80-99); MEAN PLATELET VOLUME 10.2 fL (9.0-12.2); MONOCYTES # (AUTO) 0.8 10^3/uL (0.0-1.0); MONOCYTES % (AUTO) 10 % (0-12); NEUTROPHILS # (AUTO) 5.4 10^3/uL (1.8-7.8); NEUTROPHILS % (AUTO) 63 % (42-75); PLATELET COUNT 175 10^3/uL (130-400); WHITE BLOOD COUNT 8.6 10^3/uL (4.3-11.0)
[2023-04-14 23:45] LABS: CALCIUM 9.5 MG/DL (8.5-10.1)
[2023-04-14 23:49] LABS: CREATININE SERUM 1.08 MG/DL (0.60-1.30)
[2023-04-14 23:51] LABS: MAGNESIUM 2.4 MG/DL (1.6-2.4)
[2023-04-15 00:12] LABS: FREE T4 (FREE THYROXINE) 1.14 NG/DL (0.70-1.48)
[2023-04-15 00:48] LABS: BILIRUBIN,URINE NEGATIVE (NEGATIVE); CLARITY,URINE SL CLOUDY; COLOR,URINE YELLOW; GLUCOSE, URINE (UA) NEGATIVE (NEGATIVE); KETONES,URINE NEGATIVE (NEGATIVE); LEUKOCYTE ESTERASE ,URINE 2+ (NEGATIVE); NITRITE,URINE NEGATIVE (NEGATIVE); PH,URINE 5.5 (5-9); PROTEIN,URINE NEGATIVE (NEGATIVE)
[2023-04-15 00:59] LABS: BACTERIA,URINE FEW /HPF; RBC,URINE RARE /HPF
[2023-04-15] MEDS ORDERED: LACTATED RINGERS 1,000 ML IV ONE (01:30)
[2023-04-15] MEDS ORDERED: NS 100 ML (IVPB) BAG IV ONE (02:45)
[2023-04-15] MEDS ORDERED: IOHEXOL 350 MG/ML 100 ML (OMNIPAQUE 350) VIAL IV ONE (02:45)
[2023-04-15] MEDS ORDERED: HOLD METFORMIN - RECEIVED CONTRAST 20 ML VIAL IV SCH (02:45)
[2023-04-15] MEDS ORDERED: CEPHALEXIN 250 MG (KEFLEX) CAP PO ONE (03:15)
[2023-04-15] MEDS ORDERED: CEPH500T PO (03:33)
[2023-04-15 03:45] VITALS: BP 158/67
--- NOTE | 2023-04-15 08:45 | Diagnostic Imaging Report ---
PROCEDURE: CT angiography of the head and CT angiography of the neck with and without contrast. TECHNIQUE: Contiguous noncontrast images were obtained from the skull base through the vertex. After intravenous contrast administration, helical CT angiography of the neck was performed. Source data was reformatted into 3D MIP projections. Delayed post contrast acquisition was also obtained. Auto Exposure Controls were utilized during the CT exam to meet ALARA standards for radiation dose reduction. INDICATION: Orthostatic hypotension. Dizziness. COMPARISON: None. FINDINGS: Noncontrast head CT demonstrates no intracranial hemorrhage, mass effect, hydrocephalus or extra-axial fluid collections. No CT evidence for territorial infarction. No abnormal intracranial enhancement on delayed postcontrast imaging. CTA demonstrates a conventional aortic arch. Dominant right vertebral artery. The basilar, bilateral vertebral, common carotid, internal carotid, anterior cerebral, middle cerebral and posterior cerebral arteries are widely patent without aneurysm or dissection. No evidence for arterial venous anomaly. The dural venous sinuses are normally opacified. Lbkk-cy-uzkfzupk spondylotic changes in the cervical spine. Paranasal sinuses and mastoids are clear. No acute osseous findings. Visualized paravertebral soft tissues are unremarkable. Lung apices are clear. IMPRESSION: 1. No acute intracranial CT findings. 2. No high-grade narrowing, aneurysm or dissection involving major arteries in the head and neck. Agree with preliminary interpretation. Dictated by: Dictated on workstation # [id number]
== END 2023-04-15 03:45 | disposition home or self-care (01) ==
LOC: EDUNIT# 23:06 → ER 23:08
DX: R42 Dizziness and giddiness (principal); N39.0 Urinary tract infection, site not specified; E03.9 Hypothyroidism, unspecified; Z79.899 Other long term (current) drug therapy
CPT/HCPCS: 36415; 70496; 70498; 80048; 81000; 83735; 84439; 84443; 85025; 87088; 93005; 93041

== ENCOUNTER → 2023-06-03 | Outpatient (CLI) | payer MEDICARE ==
[~2023-06-03] MED LIST changes: +CEPH500T PO
--- NOTE | 2023-06-03 12:32 | Diagnostic Imaging Report ---
Indication: Routine screening. Comparison is made with prior mammograms from 05/31/2022 and 05/29/2021. 2-D and 3-D bilateral screening mammography was performed with CAD. Both breasts are heterogeneously dense, limiting the sensitivity of mammography. The parenchymal pattern is stable. No dominant mass or malignant-appearing microcalcifications are seen. There are benign calcifications present. Axillae are unremarkable. IMPRESSION: BI-RADS Category 2. No mammographic features suspicious for malignancy are identified. ACR BI-RADS Category 2: Benign findings. Result letter will be mailed to the patient. Note: At least 10% of breast cancer is not imaged by mammography. Dictated by: Dictated on workstation # [id number]
== END ==
LOC: RAD 10:03
PROVIDERS: ATTEND Internal Medicine Hematology & Oncology
DX: Z12.31 Encounter for screening mammogram for malignant neoplasm of breast (principal); Z85.3 Personal history of malignant neoplasm of breast
CPT/HCPCS: 77063; 77067

== ENCOUNTER → 2023-08-01 | Outpatient (CLI) | payer MEDICARE | LOC: CARD 11:18 | PROVIDERS: ATTEND Internal Medicine Cardiovascular Disease | DX: I34.0 Nonrheumatic mitral (valve) insufficiency (principal); I65.23 Occlusion and stenosis of bilateral carotid arteries | CPT/HCPCS: 93306 ==